=== PATIENT | male | born 1985 | race Two or more races ===

== ENCOUNTER 2021-01-13 23:47 | Emergency (ER) | payer OTHER ==
[~2021-01-13] VITALS: Ht 165.1 cm; Wt 70.3 kg
--- NOTE | 2021-01-13 23:50 | NUR ---
PT [facility] REQUESTING MEDICAL CLEARANCE. PT C/O COUGH AND POSSIBLE COVID EXPOSURE. PT AAOX4. AMBULATORY WITH STEADY GAIT. VITAL SIGNS STABLE. NO ACUTE DISTRESS NOTED AT THIS TIME. [employer] AT BEDSIDE, WILL CONTINUE TO MONITOR
--- NOTE | 2021-01-14 00:11 | NUR ---
TREEID SWABBED, SENT TO LAB.
[2021-01-14 01:15] VITALS: BP 124/79
--- NOTE | 2021-01-14 01:15 | NUR ---
PT MEDICALLY CLEARED FOR INCARCERATION. AMBULATORY WITH STEADY GAIT
== END 2021-01-14 01:16 ==
LOC: ER 23:49
DX: R05 Cough (principal); Z20.822 Contact with and (suspected) exposure to COVID-19; F20.9 Schizophrenia, unspecified; R93.2 Abnormal findings on diagnostic imaging of liver and biliary tract
CPT/HCPCS: 71045; 87426; 99284; C9803

== ENCOUNTER 2023-09-15 10:32 | Emergency (ER) | payer MEDICARE, OTHER ==
[~2023-09-15] VITALS: Ht 172.7 cm; Wt 88.9 kg
[2023-09-15] MEDS ORDERED: OLANZAPINE 5 MG TABLET ONE (10:59)
[2023-09-15] MEDS ORDERED: OLANZAPINE 5 MG TABLET PO ONE (11:00)
[2023-09-15 11:31] LABS: BASOPHILS % (AUTO) 0.4 % (0.0-2.0); EOSINOPHILS # (AUTO) 0.1 K/uL (0.0-0.7); EOSINOPHILS % (AUTO) 1.8 % (0.0-6.0); HEMATOCRIT 37 % (39-51); HEMOGLOBIN 12.5 g/dL (13.5-17.5); LYMPHOCYTES % (AUTO) 17.7 % (20.0-44.0); MEAN CORPUSCULAR HEMOGLOBIN 28 PG (26.0-33.0); MEAN CORPUSCULAR HGB CONC 34 g/dl (31.0-36.0); MEAN CORPUSCULAR VOLUME 82 fL (80-96); MONOCYTES # (AUTO) 0.8 K/uL (0.1-1.30); MONOCYTES % (AUTO) 14.5 % (2.0-12.0); NEUTROPHILS # (AUTO) 3.6 K/uL (1.8-8.9); NEUTROPHILS % (AUTO) 65.6 % (43.0-81.0); PLATELET COUNT (AUTO) 240 K/uL (150-450); RED BLOOD CELL COUNT(AUTO) 4.52 MIL/uL (4.5-6.0); RED CELL DISTRIBUTION WIDTH 15.9 % (11.5-15.0); WHITE BLOOD COUNT (AUTO) 5.5 K/uL (4.3-11.0)
[2023-09-15 11:38] LABS: APPEARANCE,URINE CLEAR (CLEAR); BILIRUBIN,URINE NEGATIVE (NEGATIVE); BLOOD, URINE NEGATIVE Ery/uL (NEGATIVE); COLOR,URINE YELLOW (YELLOW); KETONES,URINE NEGATIVE (NEGATIVE); LEUKOCYTE ESTERASE ,URINE NEGATIVE (NEGATIVE); NITRITE, URINE NEGATIVE (NEGATIVE); PROTEIN,URINE NEGATIVE (NEGATIVE); UGLUCOSE NEGATIVE (NEGATIVE); UROBILINOGEN,URINE 0.2 EU/dL (0.2)
[2023-09-15 11:41] LABS: BARBITURATE, URINE NEGATIVE (NEGATIVE); BENZODIAZEPINE, URINE NEGATIVE (NEGATIVE); COCCAINE, URINE NEGATIVE (NEGATIVE); OPIATE, URINE NEGATIVE (NEGATIVE); PHENCYCLIDINE SCREEN,URINE NEGATIVE (NEGATIVE)
[2023-09-15 11:41] LABS: CALCIUM, SERUM 8.9 mg/dL (8.5-10.1); CREATININE 0.9 mg/dL (0.6-1.3); POTASSIUM 3.5 mmol/L (3.5-5.1)
[2023-09-15 11:44] LABS: AMPHETAMINE, URINE POSITIVE (NEGATIVE); CANNABINOID, URINE POSITIVE (NEGATIVE)
[2023-09-15 11:47] LABS: BILIRUBIN,DIRECT 0.1 mg/dL (0.0-0.2); BILIRUBIN,TOTAL 0.2 mg/dL (0.2-1.0); TOTAL PROTEIN, SERUM 7.9 g/dL (6.4-8.2)
[2023-09-15 11:48] LABS: SALICYLATE 1.6 mg/dL (2.8-20.0)
[2023-09-16 12:35] VITALS: BP 118/75; TEMP 98.2; O2SAT 97
== END 2023-09-16 14:37 ==
LOC: ER 10:35
DX: F91.1 Conduct disorder, childhood-onset type (principal); R44.0 Auditory hallucinations; Z20.822 Contact with and (suspected) exposure to COVID-19
CPT/HCPCS: 36415; 80048-TC; 80076-TC; 85025-TC; C9803; G0480

== ENCOUNTER 2024-06-25 05:13 | Inpatient (IN) | payer MEDICARE, OTHER ==
[2024-06-25] VITALS (8 sets, daily range): BP systolic 92–185; BP diastolic 68–108; TEMP 98.3–103.1; O2SAT 96–99
[~2024-06-25] VITALS: Ht 162.6 cm; Wt 80.3 kg
[2024-06-25] MEDS: IV NS 0.9% 500 ML BAG IV ONE ×2 (05:49→12:45)
[2024-06-25 06:29] LABS: BASOPHILS % (AUTO) 0.1 % (0.0-2.0); HEMATOCRIT 40 % (39-51); HEMOGLOBIN 13.1 g/dL (13.5-17.5); LYMPHOCYTES # (AUTO) 0.4 K/uL (0.8-4.8); MEAN CORPUSCULAR HEMOGLOBIN 28 PG (26.0-33.0); MEAN CORPUSCULAR HGB CONC 33 g/dl (31.0-36.0); MEAN CORPUSCULAR VOLUME 84 fL (80-96); MONOCYTES # (AUTO) 0.3 K/uL (0.1-1.30); MONOCYTES % (AUTO) 7.1 % (2.0-12.0); NEUTROPHILS # (AUTO) 3.9 K/uL (1.8-8.9); NEUTROPHILS % (AUTO) 83.8 % (43.0-81.0); PLATELET COUNT (AUTO) 267 K/uL (150-450); RED BLOOD CELL COUNT(AUTO) 4.72 MIL/uL (4.5-6.0); RED CELL DISTRIBUTION WIDTH 16.1 % (11.5-15.0); WHITE BLOOD COUNT (AUTO) 4.7 K/uL (4.3-11.0)
[2024-06-25 06:37] LABS: CALCIUM, SERUM 10.2 mg/dL (8.5-10.1); CREATININE 1.3 mg/dL (0.6-1.3); POTASSIUM 5.2 mmol/L (3.5-5.1)
[2024-06-25 06:43] LABS: ALBUMIN 3.5 g/dL (3.4-5.0); BILIRUBIN,DIRECT 0.3 mg/dL (0.0-0.2); BILIRUBIN,TOTAL 0.8 mg/dL (0.2-1.0); TOTAL PROTEIN, SERUM 8.8 g/dL (6.4-8.2)
[2024-06-25 07:00] LABS: APPEARANCE,URINE CLOUDY (CLEAR); BILIRUBIN,URINE 1+ (NEGATIVE); BLOOD, URINE 1+ Ery/uL (NEGATIVE); COLOR,URINE YELLOW (YELLOW); KETONES,URINE TRACE mg/dL (NEGATIVE); LEUKOCYTE ESTERASE ,URINE 2+ (NEGATIVE); NITRITE, URINE NEGATIVE (NEGATIVE); PH,URINE 8.5 (5.0-8.0); PROTEIN,URINE 2+ mg/dl (NEGATIVE); UGLUCOSE NEGATIVE (NEGATIVE)
[2024-06-25] MEDS ORDERED: FAMOTIDINE/PF INJ 20 MG/2 ML VIAL IV ONE (07:04)
[2024-06-25] MEDS ORDERED: METOCLOPRAMIDE HCL 10 MG/2 ML VIAL ONE (07:04)
[2024-06-25] MEDS ORDERED: PANTOPRAZOLE 40 MG VIAL ONE (07:04)
[2024-06-25 07:05] LABS: INR 1.1 (0.91-1.10); PARTIAL THROMBOPLASTIN TIME 28.6 SEC (24.3-34.3); PROTHROMBIN TIME 11.6 SECS (9.2-11.1)
[2024-06-25 07:08] LABS: LACTIC ACID 2.3 mmol/L (0.4-2.0)
[2024-06-25] MEDS: PANTOPRAZOLE 80 MG in IV NS 0.9% 100 ML IV ONE (07:09)
[2024-06-25 07:23] LABS: ADD URINE CULTURE YES; BACTERIA,URINE Few /HPF (None Seen); CALCIUM OXALATE CRYSTALS,UR Few /HPF (None Seen); MUCUS,URINE Few /LPF (None Seen); SQUAMOUS EPITHELIAL CELL,UR None Seen /HPF (None Seen); TRICHOMONAS,URINE None Seen /HPF (None Seen); URIC ACID CRYSTALS,URINE Rare /HPF (None Seen); YEAST,URINE None Seen /HPF (None Seen)
[2024-06-25] MEDS: METOCLOPRAMIDE HCL 10 MG/2 ML VIAL IV ONE (07:29)
[2024-06-25] MEDS: IV NS 0.9% 1,000 ML BAG IV ONE (07:29)
[2024-06-25] MEDS: FAMOTIDINE/PF INJ 40 MG in IV D5W 50 ML IV ONE (07:29)
[2024-06-25] MEDS: PANTOPRAZOLE 80 MG in IV NS 0.9% 500 ML IV ONE (07:29)
[2024-06-25 07:37] LABS: ANISOCYTOSIS 1+; BAND % (MANUAL) 2 % (0.0-5.0); LYMPHOCYTES % (MANUAL) 10 % (16-48); METAMYELOCYTES % 1 % (0-0); MONOCYTES % (MANUAL) 8 % (0-11.0); MYELOCYTES % 1 % (0-0); NEUTROPHILS % (MANUAL) 77 (42-76); PLATELET ESTIMATE ADEQUATE; PROMYELOCYTES % 1 % (0-0)
[2024-06-25] MEDS ORDERED: FAMO20TA80 GT (08:53)
[2024-06-25] MEDS ORDERED: DOCU100T2 GT (08:53)
[2024-06-25] MEDS ORDERED: CHLO118L3 MM (08:53)
[2024-06-25] MEDS ORDERED: CLON0.1T GT (08:53)
[2024-06-25] MEDS ORDERED: MODAFINIL GT (08:53)
[2024-06-25] MEDS ORDERED: PROP10TA10 GT (08:53)
[2024-06-25] MEDS ORDERED: NUTR250L61 GT (08:53)
[2024-06-25] MEDS ORDERED: ENOX40DI SQ (08:53)
[2024-06-25] MEDS ORDERED: HYDR-500 GT (08:53)
[2024-06-25] MEDS ORDERED: ACET-868 GT ×2 (08:53)
[2024-06-25] MEDS ORDERED: ALBU2.5V38 IH (08:53)
[2024-06-25] MEDS ORDERED: POLY17PO4 GT (08:53)
[2024-06-25] MEDS ORDERED: AMAN50SY GT (08:53)
[2024-06-25] MEDS ORDERED: LEVE100S GT (08:53)
[2024-06-25] MEDS ORDERED: CEFTRIAXONE 1GM BAG (ER ONLY) 50 ML IV ONE (09:00)
[2024-06-25] MEDS: CEFTRIAXONE 1 G in IV D5W 50 ML IV ONE (09:05)
[2024-06-25] MEDS ORDERED: ACETAMINOPHEN 650 MG/SUPP.RECT RC ONE (09:47)
[2024-06-25] MEDS ORDERED: IOHEXOL-300 100 ML VIAL IV ONE (09:49)
[2024-06-25] MEDS ORDERED: IV NS 0.9% 250 ML IV ONE (09:50)
[2024-06-25] MEDS ORDERED: CT SWABBABLE VALVE TRANS SET 1 EA INFUS.SET MC ONE (09:50)
[2024-06-25] MEDS: ACETAMINOPHEN ES 500 MG TABLET PO ONE (09:50)
[2024-06-25] MEDS: ACETAMINOPHEN 650 MG/SUPP.RECT RC ONE (09:55)
[2024-06-25 10:05] LABS: HEMATOCRIT 39 % (39-51); HEMOGLOBIN 12.4 g/dL (13.5-17.5); LYMPHOCYTES # (AUTO) 0.6 K/uL (0.8-4.8); MEAN CORPUSCULAR HEMOGLOBIN 27 PG (26.0-33.0); MEAN CORPUSCULAR HGB CONC 32 g/dl (31.0-36.0); MEAN CORPUSCULAR VOLUME 85 fL (80-96); MONOCYTES # (AUTO) 0.3 K/uL (0.1-1.30); MONOCYTES % (AUTO) 11.8 % (2.0-12.0); NEUTROPHILS # (AUTO) 1.7 K/uL (1.8-8.9); NEUTROPHILS % (AUTO) 64.2 % (43.0-81.0); PLATELET COUNT (AUTO) 286 K/uL (150-450); RED BLOOD CELL COUNT(AUTO) 4.57 MIL/uL (4.5-6.0); RED CELL DISTRIBUTION WIDTH 16.3 % (11.5-15.0); WHITE BLOOD COUNT (AUTO) 2.6 K/uL (4.3-11.0)
[2024-06-25] MEDS ORDERED: KETOROLAC TROMETHAMINE 15 MG/ML VIAL ONE (11:19)
[2024-06-25] MEDS: KETOROLAC TROMETHAMINE 15 MG/ML VIAL IV ONE (11:31)
[2024-06-25] MEDS: PIPERACILLIN /TAZOBACTAM 3.375 G in IV D5W 50 ML IV ONE (11:31)
[2024-06-25] MEDS: VANCOMYCIN 1 GM in IV D5W 250 ML IV ONE (12:20)
[2024-06-25] MEDS ORDERED: BENZOIN COMPOUND TINCT 60 ML BOTTLE ONE (12:22)
[2024-06-25] MEDS ORDERED: MAGNESIUM HYDROXIDE 30 ML UDC PO PRN (12:30)
[2024-06-25] MEDS ORDERED: ONDANSETRON HCL/PF 4 MG/2 ML VIAL IVP PRN (12:30)
[2024-06-25] MEDS ORDERED: POLYETHYLENE GLYCOL 3350 17 GM POWD.PACK GT PRN (12:30)
[2024-06-25] MEDS ORDERED: MAG HYDROX/AL HYDROX/SIMETH 30 ML UDC PO PRN (12:30)
[2024-06-25] MEDS ORDERED: ACETAMINOPHEN 325 MG TABLET PO PRN (12:30)
[2024-06-25] MEDS ORDERED: Z GUARD REMEDY 4 OZ OINT TP PRN (12:30)
[2024-06-25] MEDS ORDERED: DOCUSATE SODIUM LIQ 100 MG/10 ML UDC GT PRN (13:30)
[2024-06-25] MEDS ORDERED: ALBUTEROL FS 2.5 MG/3 ML VIAL.NEB NEB PRN (13:30)
[2024-06-25] MEDS ORDERED: ALBUTEROL FS 2.5 MG/3 ML VIAL.NEB IH PRN (13:30)
[2024-06-25] MEDS ORDERED: PANTOPRAZOLE 40 MG VIAL IV SCH ×2 (14:32→21:00)
[2024-06-25] MEDS: IV NS 0.9% 1,000 ML IV PRN (15:26)
[2024-06-25] MEDS: VANCOMYCIN 500 MG in IV D5W 100ml IV ONE (15:29)
[2024-06-25] MEDS ORDERED: PANTOPRAZOLE 80 MG in IV NS 0.9% 500 ML IV PRN (15:30)
[2024-06-25] MEDS: LEVETIRACETAM SOL (5 ML) 100 MG/ML UDC GT SCH (17:00)
[2024-06-25] MEDS: AMANTADINE SUSP 50 MG/5 ML UDC GT SCH (17:00)
[2024-06-25] MEDS: PROPRANOLOL HCL 10 MG TABLET GT SCH (17:00)
[2024-06-25] MEDS: PIPERACILLIN /TAZOBACTAM 3.375 G in IV D5W 50 ML IV SCH (17:50)
[2024-06-25] MEDS: PANTOPRAZOLE 80 MG in IV NS 0.9% 500 ML IV SCH (17:50)
[2024-06-25 18:42] LABS: BASOPHILS % (AUTO) 0.1 % (0.0-2.0); EOSINOPHILS % (AUTO) 0.2 % (0.0-6.0); HEMATOCRIT 31 % (39-51); LYMPHOCYTES # (AUTO) 0.5 K/uL (0.8-4.8); LYMPHOCYTES % (AUTO) 21.6 % (20.0-44.0); MEAN CORPUSCULAR HEMOGLOBIN 28 PG (26.0-33.0); MEAN CORPUSCULAR HGB CONC 33 g/dl (31.0-36.0); MEAN CORPUSCULAR VOLUME 85 fL (80-96); MONOCYTES # (AUTO) 0.3 K/uL (0.1-1.30); NEUTROPHILS # (AUTO) 1.5 K/uL (1.8-8.9); NEUTROPHILS % (AUTO) 66.1 % (43.0-81.0); PLATELET COUNT (AUTO) 197 K/uL (150-450); RED BLOOD CELL COUNT(AUTO) 3.62 MIL/uL (4.5-6.0); RED CELL DISTRIBUTION WIDTH 16.5 % (11.5-15.0); WHITE BLOOD COUNT (AUTO) 2.3 K/uL (4.3-11.0)
[2024-06-25] MEDS: IV LR 1000 ML 1,000 ML BAG IV ONE (19:23)
[2024-06-25] MEDS ORDERED: LEVETIRACETAM (500MG) 500 MG/5 ML VIAL IV ONE (20:16)
[2024-06-25] MEDS: LEVETIRACETAM (500MG) 500 MG in IV NS 0.9% 100 ML IV SCH (20:28)
[2024-06-25] MEDS: CHLORHEXIDINE GLUCONATE 4% 118 ML BOTTLE TP SCH (21:00)
[2024-06-25 22:22] LABS: BAND % (MANUAL) 24 % (0.0-5.0); LYMPHOCYTES % (MANUAL) 34 % (16-48); METAMYELOCYTES % 4 % (0-0); MONOCYTES % (MANUAL) 20 % (0-11.0); NEUTROPHILS % (MANUAL) 18 (42-76)
[2024-06-25 22:23] LABS: ANISOCYTOSIS 1+
[2024-06-25 22:25] LABS: PLATELET ESTIMATE ADEQU
[2024-06-25] MEDS: SODIUM BICARBONATE SYR 50 MEQ/50 ML DISP.SYRIN IV ONE (22:30)
[2024-06-25] MEDS: ACETAMINOPHEN 650 MG/SUPP.RECT RC PRN (22:45)
[2024-06-25] MEDS: SODIUM BICARBONATE SYR 50 MEQ/50 ML DISP.SYRIN ONE (23:16)
[2024-06-26] VITALS (94 sets, daily range): BP systolic 77–122; BP diastolic 57–96; TEMP 97.5–105.8; O2SAT 94–100
[2024-06-26] MEDS: DILTIAZEM HCL 25 MG IV IV ONE (00:40)
[2024-06-26] MEDS ORDERED: NOREPINEPHRINE 8 MG in IV D5W 242 ML IV PRN (01:00)
[2024-06-26] MEDS: VANCOMYCIN HCL 1.25 GM in IV D5W 250 ML IV SCH (01:19)
[2024-06-26] MEDS: PHENYLEPHRINE 50 MG in IV NS 0.9% 245 ML IV PRN (02:22)
[2024-06-26] MEDS: PHENYLEPHRINE 10 MG/ML VIAL ONE (03:07)
[2024-06-26 05:11] LABS: BASOPHILS % (AUTO) 0.1 % (0.0-2.0); EOSINOPHILS % (AUTO) 0.1 % (0.0-6.0); HEMATOCRIT 32 % (39-51); HEMOGLOBIN 10.1 g/dL (13.5-17.5); LYMPHOCYTES # (AUTO) 0.8 K/uL (0.8-4.8); MEAN CORPUSCULAR HEMOGLOBIN 28 PG (26.0-33.0); MEAN CORPUSCULAR HGB CONC 31 g/dl (31.0-36.0); MEAN CORPUSCULAR VOLUME 88 fL (80-96); MONOCYTES # (AUTO) 0.5 K/uL (0.1-1.30); NEUTROPHILS # (AUTO) 3.8 K/uL (1.8-8.9); NEUTROPHILS % (AUTO) 74.8 % (43.0-81.0); PLATELET COUNT (AUTO) 188 K/uL (150-450); RED BLOOD CELL COUNT(AUTO) 3.67 MIL/uL (4.5-6.0); RED CELL DISTRIBUTION WIDTH 17.4 % (11.5-15.0); WHITE BLOOD COUNT (AUTO) 5.1 K/uL (4.3-11.0)
[2024-06-26] MEDS ORDERED: LEVETIRACETAM (500MG) 500 MG/5 ML VIAL IV ONE (05:27)
[2024-06-26 05:29] LABS: CALCIUM, SERUM 8.6 mg/dL (8.5-10.1); CREATININE 2.3 mg/dL (0.6-1.3); MAGNESIUM 1.6 mg/dL (1.8-2.4); PHOSPHORUS 3.6 mg/dL (2.5-4.9); POTASSIUM 4.2 mmol/L (3.5-5.1)
[2024-06-26 08:11] LABS: MONOCYTES % (MANUAL) 10 % (0-11.0)
[2024-06-26 08:11] LABS: ABG BASE EXCESS -1.9 mmol/L (-2.0-3.0); ABG OXYGEN SATURATION 95.6 % (94.0-98.0); ABG PCO2 26.2 mmHg (35.0-48.0); ABG PH 7.499 (7.350-7.450); ABG PO2 76.4 mmHg (83.0-108.0); ABG TOTAL HEMOGLOBIN 12.7 G/dL (13.5-17.5); AaDO2 466.5 mmHg; COHb 0.3 % (0.5-1.5); MetHb 0.1 % (0.0-1.5); O2Hb 95.2 % (94.0-97.0); SITE, ABG Right Radial
[2024-06-26 08:18] LABS: BAND % (MANUAL) 3 % (0.0-5.0); LYMPHOCYTES % (MANUAL) 15 % (16-48); METAMYELOCYTES % 1 % (0-0); MYELOCYTES % 2 % (0-0); NEUTROPHILS % (MANUAL) 69 (42-76)
[2024-06-26 08:19] LABS: PLATELET ESTIMATE ADEQUATE; PROMYELOCYTES % 1 % (0-0)
[2024-06-26] MEDS: IV NS 0.9% 1,000 ML IV ONE (08:20)
[2024-06-26] MEDS: MODAFINIL 100 MG TABLET GT SCH (09:00)
[2024-06-26] MEDS: AMIODARONE 150 MG in IV D5W 100 ML IV ONE (09:09)
[2024-06-26] MEDS: OCTREOTIDE 50 MCG in IV NS 0.9% 50 ML IJ ONE (09:09)
[2024-06-26] MEDS: AMIODARONE 450 MG in IV D5W 241 ML IV PRN (10:00)
[2024-06-26] MEDS: OCTREOTIDE 1,250 MCG in IV NS 0.9% 247.5 ML IV PRN (10:59)
[2024-06-26] MEDS ORDERED: ALBUMIN 25% 12.5 GM/50 ML BOTTLE IV ONE (11:00)
[2024-06-26] MEDS: Magnesium 1GM/D5W 100ML PREMIX 100 ML IV SCH (11:53)
[2024-06-26 12:52] LABS: HIV-1 p24 ANTIGEN NON REACTIVE (NONREACTIVE); HIV-1/2 ANTIBODY REACTIVE (NONREACTIVE)
[2024-06-26] MEDS ORDERED: MEROPENEM 1 G in IV NS 0.9% 100 ML IV SCH (13:00)
[2024-06-26] MEDS: MEROPENEM 1 G in IV NS 0.9% 100 ML IV SCH (13:54)
[2024-06-26] MEDS: FLUCONAZOLE IN NS,PREMIX 200 MG in PREMIX 1 EA IV SCH (13:54)
[2024-06-26] MEDS: ALBUMIN 25% 12.5 GM in PREMIX 1 EA IV ONE (15:26)
[2024-06-26] MEDS ORDERED: AMANTADINE SUSP 50 MG/5 ML UDC GT SCH (17:00)
[2024-06-26 19:08] LABS: BASOPHILS % (AUTO) 0.3 % (0.0-2.0); EOSINOPHILS % (AUTO) 0.2 % (0.0-6.0); HEMATOCRIT 30 % (39-51); HEMOGLOBIN 9.4 g/dL (13.5-17.5); LYMPHOCYTES # (AUTO) 0.4 K/uL (0.8-4.8); LYMPHOCYTES % (AUTO) 7.9 % (20.0-44.0); MEAN CORPUSCULAR HEMOGLOBIN 27 PG (26.0-33.0); MEAN CORPUSCULAR HGB CONC 32 g/dl (31.0-36.0); MEAN CORPUSCULAR VOLUME 86 fL (80-96); MONOCYTES # (AUTO) 0.4 K/uL (0.1-1.30); MONOCYTES % (AUTO) 7.7 % (2.0-12.0); NEUTROPHILS # (AUTO) 3.9 K/uL (1.8-8.9); NEUTROPHILS % (AUTO) 83.9 % (43.0-81.0); PLATELET COUNT (AUTO) 156 K/uL (150-450); RED BLOOD CELL COUNT(AUTO) 3.44 MIL/uL (4.5-6.0); RED CELL DISTRIBUTION WIDTH 17.3 % (11.5-15.0); WHITE BLOOD COUNT (AUTO) 4.6 K/uL (4.3-11.0)
[2024-06-26 21:23] LABS: ANISOCYTOSIS 1+; BAND % (MANUAL) 9 % (0.0-5.0); LYMPHOCYTES % (MANUAL) 17 % (16-48); MONOCYTES % (MANUAL) 14 % (0-11.0); NEUTROPHILS % (MANUAL) 60 (42-76); PLATELET ESTIMATE ADEQUATE
[2024-06-26 21:24] LABS: ROULEAUX 1+
[2024-06-26] MEDS: LEVETIRACETAM (500MG) 500 MG in IV NS 0.9% 100 ML IV SCH (21:30)
[2024-06-27] VITALS (90 sets, daily range): BP systolic 90–126; BP diastolic 63–90; TEMP 98.6–99.5; O2SAT 82–100
[2024-06-27] MEDS: VANCOMYCIN HCL 1.25 GM in IV D5W 250 ML IV SCH (02:15)
[2024-06-27] MEDS: IV NS 0.9% 1,000 ML IV PRN (09:37)
[2024-06-27 13:36] LABS: HIV-1 p24 ANTIGEN NON REACTIVE (NONREACTIVE); HIV-1/2 ANTIBODY REACTIVE (NONREACTIVE)
[2024-06-27] MEDS: DIGOXIN INJ 0.5 MG/2 ML AMPUL IV SCH (13:47)
[2024-06-27 15:11] LABS: CALCIUM, SERUM 7.9 mg/dL (8.5-10.1); CREATININE 1.2 mg/dL (0.6-1.3); MAGNESIUM 2.5 mg/dL (1.8-2.4); PHOSPHORUS 3.6 mg/dL (2.5-4.9); POTASSIUM 4.7 mmol/L (3.5-5.1)
[2024-06-27 16:10] LABS: BASOPHILS % (AUTO) 0.1 % (0.0-2.0); EOSINOPHILS % (AUTO) 0.1 % (0.0-6.0); HEMATOCRIT 27 % (39-51); HEMOGLOBIN 8.7 g/dL (13.5-17.5); LYMPHOCYTES # (AUTO) 0.2 K/uL (0.8-4.8); LYMPHOCYTES % (AUTO) 3.5 % (20.0-44.0); MEAN CORPUSCULAR HEMOGLOBIN 27 PG (26.0-33.0); MEAN CORPUSCULAR HGB CONC 32 g/dl (31.0-36.0); MEAN CORPUSCULAR VOLUME 84 fL (80-96); MONOCYTES # (AUTO) 0.3 K/uL (0.1-1.30); MONOCYTES % (AUTO) 5.2 % (2.0-12.0); NEUTROPHILS # (AUTO) 5.4 K/uL (1.8-8.9); NEUTROPHILS % (AUTO) 91.1 % (43.0-81.0); PLATELET COUNT (AUTO) 137 K/uL (150-450); RED BLOOD CELL COUNT(AUTO) 3.21 MIL/uL (4.5-6.0); RED CELL DISTRIBUTION WIDTH 17.7 % (11.5-15.0); WHITE BLOOD COUNT (AUTO) 5.9 K/uL (4.3-11.0)
[2024-06-27 20:40] LABS: BAND % (MANUAL) 6 % (0.0-5.0); LYMPHOCYTES % (MANUAL) 6 % (16-48); METAMYELOCYTES % 8 % (0-0); MONOCYTES % (MANUAL) 3 % (0-11.0); PLATELET ESTIMATE DECREASED
[2024-06-27 20:41] LABS: ANISOCYTOSIS 1+
[2024-06-27 20:43] LABS: NEUTROPHILS % (MANUAL) 77 (42-76)
[2024-06-27] MEDS ORDERED: PANTOPRAZOLE 40 MG VIAL IV SCH (21:00)
[2024-06-28] VITALS (49 sets, daily range): BP systolic 103–151; BP diastolic 74–110; TEMP 98.6–100.7; O2SAT 95–100
[2024-06-28 05:11] LABS: BASOPHILS % (AUTO) 0.1 % (0.0-2.0); EOSINOPHILS % (AUTO) 0.1 % (0.0-6.0); HEMATOCRIT 25 % (39-51); HEMOGLOBIN 8.4 g/dL (13.5-17.5); LYMPHOCYTES # (AUTO) 0.3 K/uL (0.8-4.8); LYMPHOCYTES % (AUTO) 4.4 % (20.0-44.0); MEAN CORPUSCULAR HEMOGLOBIN 28 PG (26.0-33.0); MEAN CORPUSCULAR HGB CONC 33 g/dl (31.0-36.0); MEAN CORPUSCULAR VOLUME 84 fL (80-96); MONOCYTES # (AUTO) 0.3 K/uL (0.1-1.30); MONOCYTES % (AUTO) 5.9 % (2.0-12.0); NEUTROPHILS # (AUTO) 5.3 K/uL (1.8-8.9); NEUTROPHILS % (AUTO) 89.5 % (43.0-81.0); PLATELET COUNT (AUTO) 132 K/uL (150-450); RED BLOOD CELL COUNT(AUTO) 2.97 MIL/uL (4.5-6.0); RED CELL DISTRIBUTION WIDTH 17.9 % (11.5-15.0); WHITE BLOOD COUNT (AUTO) 5.9 K/uL (4.3-11.0)
[2024-06-28 05:34] LABS: CALCIUM, SERUM 8.2 mg/dL (8.5-10.1); CREATININE 0.9 mg/dL (0.6-1.3); MAGNESIUM 2.2 mg/dL (1.8-2.4); PHOSPHORUS 2.9 mg/dL (2.5-4.9); POTASSIUM 3.6 mmol/L (3.5-5.1)
[2024-06-28] MEDS: MEROPENEM 1 G in IV NS 0.9% 100 ML IV SCH (07:48)
[2024-06-28] MEDS ORDERED: TPN/PPN PER PHARMACY IV PRN (08:00)
[2024-06-28] MEDS: PANTOPRAZOLE 40 MG VIAL IV SCH (08:08)
[2024-06-28 08:11] LABS: ALBUMIN 1.8 g/dL (3.4-5.0)
[2024-06-28 08:14] LABS: PREALBUMIN 7.3 MG/DL (18.0-35.7)
[2024-06-28] MEDS ORDERED: PANTOPRAZOLE 40 MG VIAL IV SCH (09:00)
[2024-06-28] MEDS: TPN BAG #1 IV SCH (09:55)
[2024-06-28] MEDS ORDERED: DEXTROSE 50%-WATER 50 ML DISP.SYRIN IV PRN (11:00)
[2024-06-28] MEDS: BLOOD SUGAR DIAGNOSTIC 1 EACH STRIP IN SCH (12:57)
[2024-06-28] MEDS: VANCOMYCIN HCL 1.25 GM in IV D5W 250 ML IV SCH (15:00)
[2024-06-28] MEDS: LORAZEPAM INJ 2 MG/ML VIAL IV ONE (16:58)
[2024-06-28 17:59] LABS: APPEARANCE,SPUN,BODY FLUID CLEAR (CLEAR); TOTAL VOLUME,BODY FLUID 60 mL; WBC, BODY FLUID 17199 /cu. mm. (0-200)
[2024-06-28 18:07] LABS: PROTEIN, BODY FLUID 3.6 G/DL
[2024-06-28 18:12] LABS: POLYNUCLEAR, BODY FLUID 94 % (0-25)
[2024-06-28 18:13] LABS: MONOCYTES,BODY FLUID 4 %
[2024-06-28] MEDS: POTASSIUM CL. PREMIX PERIPHER. 50 ML IV SCH (21:21)
[2024-06-28] MEDS: IV NS 0.9% 1,000 ML IV PRN (21:41)
[2024-06-29] VITALS (53 sets, daily range): BP systolic 109–151; BP diastolic 76–120; TEMP 100–102; O2SAT 89–100
[2024-06-29 04:30] LABS: MAGNESIUM 1.6 mg/dL (1.8-2.4); PHOSPHORUS 1.4 mg/dL (2.5-4.9)
[2024-06-29 07:12] LABS: HEPATITIS B CORE AB, TOTAL Negative (Negative); HEPATITIS B SURFACE AB Non Reactive (.)
[2024-06-29 07:28] LABS: CALCIUM, SERUM 8.5 mg/dL (8.5-10.1); CREATININE 0.8 mg/dL (0.6-1.3)
[2024-06-29] MEDS ORDERED: Sodium Phosphate 15 MMOL in IV NS 0.9% 245 ML IV SCH (08:30)
[2024-06-29] MEDS ORDERED: Magnesium 1GM/D5W 100ML PREMIX 100 ML IV SCH (08:30)
[2024-06-29] MEDS: Magnesium 1GM/D5W 100ML PREMIX 1 G in PREMIX 1 EA IV SCH (08:57)
[2024-06-29] MEDS: POTASSIUM PHOSPHATE MM 15 MMOL in IV NS 0.9% 250 ML IV SCH (09:01)
[2024-06-29] MEDS: TPN BAG #2 IV SCH (10:46)
[2024-06-29] MEDS ORDERED: IV NS 0.9% 1,000 ML IV PRN (11:00)
[2024-06-29] MEDS: INSULIN REGULAR, HUMAN 100 UNIT/ML 3 ML VIAL SQ PRN (12:26)
[2024-06-29] MEDS: POTASSIUM CL. PREMIX PERIPHER. 50 ML IV SCH (16:00)
[2024-06-29 16:03] LABS: PROTEIN, BODY FLUID 3.2 G/DL
[2024-06-29 16:45] LABS: APPEARANCE,SPUN,BODY FLUID CLEAR (CLEAR); TOTAL VOLUME,BODY FLUID 500 mL; WBC, BODY FLUID 17257 /cu. mm. (0-200)
[2024-06-29 16:59] LABS: MACROPHAGES, BODY FLUID 3
[2024-06-29 17:00] LABS: POLYNUCLEAR, BODY FLUID 90 % (0-25)
[2024-06-29] MEDS: VANCOMYCIN HCL 1.25 GM in IV D5W 250 ML IV SCH (22:25)
[2024-06-30] VITALS (33 sets, daily range): BP systolic 94–126; BP diastolic 73–95; TEMP 100.3–102.3; O2SAT 96–100
[2024-06-30 04:29] LABS: BASOPHILS % (AUTO) 0.1 % (0.0-2.0); EOSINOPHILS % (AUTO) 0.3 % (0.0-6.0); HEMATOCRIT 29 % (39-51); HEMOGLOBIN 9.5 g/dL (13.5-17.5); LYMPHOCYTES # (AUTO) 0.6 K/uL (0.8-4.8); LYMPHOCYTES % (AUTO) 6.8 % (20.0-44.0); MEAN CORPUSCULAR HEMOGLOBIN 28 PG (26.0-33.0); MEAN CORPUSCULAR HGB CONC 33 g/dl (31.0-36.0); MEAN CORPUSCULAR VOLUME 84 fL (80-96); MONOCYTES # (AUTO) 0.7 K/uL (0.1-1.30); MONOCYTES % (AUTO) 7.8 % (2.0-12.0); NEUTROPHILS # (AUTO) 7.2 K/uL (1.8-8.9); PLATELET COUNT (AUTO) 96 K/uL (150-450); RED BLOOD CELL COUNT(AUTO) 3.43 MIL/uL (4.5-6.0); RED CELL DISTRIBUTION WIDTH 17.3 % (11.5-15.0); WHITE BLOOD COUNT (AUTO) 8.5 K/uL (4.3-11.0)
[2024-06-30 04:55] LABS: CALCIUM, SERUM 7.8 mg/dL (8.5-10.1); CREATININE 0.6 mg/dL (0.6-1.3); MAGNESIUM 1.5 mg/dL (1.8-2.4); PHOSPHORUS 2.1 mg/dL (2.5-4.9); POTASSIUM 2.8 mmol/L (3.5-5.1)
[2024-06-30 06:10] LABS: *BASOS 1 % (Not Estab.); *EOS 0 % (Not Estab.); *HCT 27.5 % (37.5-51.0); *HGB 8.6 g/dL (13.0-17.7); *IMMATURE GRANULOCYTES 1 % (Not Estab.); *IMMATURE GRANULOCYTES(ABS) 0.1 x10E3/uL (0.0-0.1); *LYMPHOCYTES 5 % (Not Estab.); *LYMPHS, ABSOLUTE 0.3 x10E3/uL (0.7-3.1); *MCH 27.5 pg (26.6-33.0); *MCHC 31.3 g/dL (31.5-35.7); *MCV 88 fL (79-97); *MONOCYTES 8 % (Not Estab.); *MONOS, ABSOLUTE 0.5 x10E3/uL (0.1-0.9); *NEUTROPHILS 85 % (Not Estab.); *NEUTROPHILS, ABSOLUTE 5.1 x10E3/uL (1.4-7.0); *PLT 161 x10E3/uL (150-450); *RBC 3.13 x10E6/uL (4.14-5.80); *RDW 15.4 % (11.6-15.4); *WBC 5.9 x10E3/uL (3.4-10.8)
[2024-06-30 06:26] LABS: BASOPHILS % (MANUAL) 0 % (0.0-2.0); EOSINOPHILS % (MANUAL) 1 % (0-4); LYMPHOCYTES % (MANUAL) 9 % (16-48); MONOCYTES % (MANUAL) 6 % (0-11.0); NEUTROPHILS % (MANUAL) 84 (42-76)
[2024-06-30 06:27] LABS: ANISOCYTOSIS 1+; PLATELET ESTIMATE DECREASED
[2024-06-30] MEDS ORDERED: Magnesium 1 GM/2 ML VIAL IV ONE (07:00)
[2024-06-30] MEDS: POTASSIUM CHLORIDE 10 MEQ/50 ML PREMIXED IVPB FOR PERIPHERAL LINE IV ONE (07:58)
[2024-06-30] MEDS: Magnesium 1GM/D5W 100ML PREMIX 100 ML IV ONE (07:59)
[2024-06-30] MEDS: TPN BAG #3 IV SCH (09:21)
[2024-06-30 10:13] LABS: *% CD 4 POS. LYMPH 26.8 % (30.8-58.5); *% CD 8 POS. LYMPH 39.4 % (12.0-35.5); *ABSOLUTE CD 4 HELPER 80 /uL (359-1519); *ABSOLUTE CD 8 SUPPRESSOR 118 /uL (109-897); *CD4/CD8 RATIO 0.68 (0.92-3.72)
[2024-06-30] MEDS ORDERED: Magnesium 1GM/D5W 100ML PREMIX 100 ML IV SCH (10:30)
[2024-06-30 13:31] LABS: CALCIUM, SERUM 7.2 mg/dL (8.5-10.1); CREATININE 0.8 mg/dL (0.6-1.3); MAGNESIUM 1.4 mg/dL (1.8-2.4); POTASSIUM 2.8 mmol/L (3.5-5.1)
[2024-06-30 15:10] LABS: *HIV-1 log10 RNA 5.072 (.)
[2024-06-30] MEDS: Magnesium 1GM/D5W 100ML PREMIX 100 ML IV SCH (16:05)
[2024-06-30] MEDS: POTASSIUM CL. PREMIX PERIPHER. 50 ML IV SCH (16:06)
[2024-06-30] MEDS: POTASSIUM PHOSPHATE MM 7.5 MMOL in IV NS 0.9% 100 ML IV SCH (17:02)
[2024-07-01] VITALS (24 sets, daily range): BP systolic 97–139; BP diastolic 66–100; TEMP 99.5–102.5; O2SAT 97–100
[2024-07-01 04:51] LABS: BASOPHILS % (AUTO) 0.1 % (0.0-2.0); EOSINOPHILS % (AUTO) 0.4 % (0.0-6.0); HEMATOCRIT 27 % (39-51); LYMPHOCYTES # (AUTO) 0.7 K/uL (0.8-4.8); LYMPHOCYTES % (AUTO) 6.3 % (20.0-44.0); MEAN CORPUSCULAR HEMOGLOBIN 28 PG (26.0-33.0); MEAN CORPUSCULAR HGB CONC 33 g/dl (31.0-36.0); MEAN CORPUSCULAR VOLUME 83 fL (80-96); MONOCYTES # (AUTO) 0.7 K/uL (0.1-1.30); MONOCYTES % (AUTO) 6.9 % (2.0-12.0); NEUTROPHILS # (AUTO) 9.3 K/uL (1.8-8.9); NEUTROPHILS % (AUTO) 86.3 % (43.0-81.0); PLATELET COUNT (AUTO) 200 K/uL (150-450); RED BLOOD CELL COUNT(AUTO) 3.26 MIL/uL (4.5-6.0); RED CELL DISTRIBUTION WIDTH 17.2 % (11.5-15.0); WHITE BLOOD COUNT (AUTO) 10.8 K/uL (4.3-11.0)
[2024-07-01 05:15] LABS: CALCIUM, SERUM 7.3 mg/dL (8.5-10.1); CREATININE 0.6 mg/dL (0.6-1.3); MAGNESIUM 1.6 mg/dL (1.8-2.4); PHOSPHORUS 2.3 mg/dL (2.5-4.9)
[2024-07-01] MEDS ORDERED: POTASSIUM CHLORIDE 10 MEQ/50 ML PREMIXED IVPB FOR PERIPHERAL LINE IV ONE ×2 (07:00→08:00)
[2024-07-01] MEDS: POTASSIUM CL. PREMIX PERIPHER. 50 ML IV SCH (07:02)
[2024-07-01] MEDS: CEFEPIME 2 GM in IV D5W 100 ML IV SCH (08:37)
[2024-07-01] MEDS: METRONIDAZOLE 500MG/ NS 100ML 500 MG in PREMIX 1 EA IV SCH (09:20)
[2024-07-01] MEDS: TPN BAG #4 IV SCH (10:09)
[2024-07-01] MEDS: Magnesium 1GM/D5W 100ML PREMIX 100 ML IV SCH (10:14)
[2024-07-01 12:47] LABS: BILIRUBIN,DIRECT 0.1 mg/dL (0.0-0.2); BILIRUBIN,TOTAL 0.4 mg/dL (0.2-1.0); TOTAL PROTEIN, SERUM 6.2 g/dL (6.4-8.2)
[2024-07-01 13:07] LABS: ALBUMIN 1.4 g/dL (3.4-5.0)
[2024-07-01] MEDS: FLUCONAZOLE IN NS,PREMIX 400 MG in PREMIX 1 EA IV SCH (13:11)
[2024-07-01] MEDS: MIDAZOLAM HCL 2 MG/2ML VIAL IV STA (14:12)
[2024-07-01] MEDS: FENTANYL PF 100MCG/2ML AMPUL IV STA (14:12)
[2024-07-01] MEDS: FAT EMULSION 20% 500 ML in PREMIX 1 EA IV SCH (16:34)
[2024-07-01] MEDS: Sodium Phosphate 15 MMOL in IV NS 0.9% 245 ML IV SCH (17:16)
[2024-07-02] VITALS (24 sets, daily range): BP systolic 96–132; BP diastolic 58–84; TEMP 99.5–102; O2SAT 97–100
[2024-07-02 04:56] LABS: CALCIUM, SERUM 7.4 mg/dL (8.5-10.1); CREATININE 0.5 mg/dL (0.6-1.3); PHOSPHORUS 3.1 mg/dL (2.5-4.9); POTASSIUM 3.2 mmol/L (3.5-5.1)
[2024-07-02 08:10] LABS: RAPID PLASMA REAGIN QUAL. Non Reactive (Non Reactive)
[2024-07-02] MEDS: POTASSIUM CL. PREMIX PERIPHER. 50 ML IV SCH (08:46)
[2024-07-02] MEDS: ALTEPLASE CATHFLO 2 MG/VIAL XX ONE (08:47)
[2024-07-02] MEDS: TPN BAG #5 IV SCH (10:45)
[2024-07-02 11:41] LABS: BASOPHILS % (AUTO) 0.1 % (0.0-2.0); EOSINOPHILS # (AUTO) 0.1 K/uL (0.0-0.7); EOSINOPHILS % (AUTO) 0.9 % (0.0-6.0); HEMATOCRIT 25 % (39-51); HEMOGLOBIN 8.1 g/dL (13.5-17.5); LYMPHOCYTES # (AUTO) 0.5 K/uL (0.8-4.8); LYMPHOCYTES % (AUTO) 3.1 % (20.0-44.0); MEAN CORPUSCULAR HEMOGLOBIN 27 PG (26.0-33.0); MEAN CORPUSCULAR HGB CONC 33 g/dl (31.0-36.0); MEAN CORPUSCULAR VOLUME 83 fL (80-96); MONOCYTES # (AUTO) 0.8 K/uL (0.1-1.30); MONOCYTES % (AUTO) 5.5 % (2.0-12.0); NEUTROPHILS # (AUTO) 13.4 K/uL (1.8-8.9); NEUTROPHILS % (AUTO) 90.4 % (43.0-81.0); PLATELET COUNT (AUTO) 237 K/uL (150-450); RED BLOOD CELL COUNT(AUTO) 3.02 MIL/uL (4.5-6.0); RED CELL DISTRIBUTION WIDTH 17.1 % (11.5-15.0); WHITE BLOOD COUNT (AUTO) 14.8 K/uL (4.3-11.0)
[2024-07-02 12:24] LABS: ABG BASE EXCESS 3.7 mmol/L (-2.0-3.0); ABG OXYGEN SATURATION 96.4 % (94.0-98.0); ABG PCO2 33.4 mmHg (35.0-48.0); ABG PH 7.518 (7.350-7.450); ABG PO2 84.7 mmHg (83.0-108.0); ABG TOTAL HEMOGLOBIN 9.2 G/dL (13.5-17.5); COHb 0.3 % (0.5-1.5); MetHb 0.4 % (0.0-1.5); O2Hb 95.7 % (94.0-97.0); PEEP,BG 5 cm H2O; SITE, ABG RIGHT RADIAL
[2024-07-03] VITALS (24 sets, daily range): BP systolic 105–144; BP diastolic 68–89; TEMP 100.1–101.8; O2SAT 94–100
[2024-07-03 05:06] LABS: CALCIUM, SERUM 8.2 mg/dL (8.5-10.1); CREATININE 0.5 mg/dL (0.6-1.3); MAGNESIUM 1.4 mg/dL (1.8-2.4); PHOSPHORUS 2.6 mg/dL (2.5-4.9); POTASSIUM 2.8 mmol/L (3.5-5.1)
[2024-07-03] MEDS: Magnesium 1GM/D5W 100ML PREMIX 100 ML IV SCH (06:45)
[2024-07-03] MEDS: POTASSIUM CL. PREMIX PERIPHER. 50 ML IV SCH (06:45)
[2024-07-03] MEDS ORDERED: POTASSIUM CL. PREMIX PERIPHER. 50 ML IV SCH ×2 (08:00→12:30)
[2024-07-03] MEDS ORDERED: TPN BAG #6 IV SCH (10:00)
[2024-07-03] MEDS: TPN BAG #6 IV SCH (10:16)
[2024-07-03] MEDS ORDERED: Magnesium 1GM/D5W 100ML PREMIX 100 ML IV SCH (12:30)
[2024-07-03] MEDS: POTASSIUM PHOSPHATE MM 7.5 MMOL in IV NS 0.9% 100 ML IV SCH (15:00)
[2024-07-03] MEDS: TOBRAMYCIN/DEXAMETH OPHTH DORPS 2.5 ML BOTTLE LEFTEYE SCH (17:53)
[2024-07-03] MEDS: VANCOMYCIN 750 MG in IV D5W 250 ML IV SCH (18:47)
[2024-07-04] VITALS (24 sets, daily range): BP systolic 100–140; BP diastolic 66–93; TEMP 99.4–101; O2SAT 96–100
[2024-07-04 05:12] LABS: BASOPHILS # (AUTO) 0.1 K/uL (0.0-0.2); BASOPHILS % (AUTO) 0.7 % (0.0-2.0); EOSINOPHILS # (AUTO) 0.1 K/uL (0.0-0.7); HEMATOCRIT 21 % (39-51); HEMOGLOBIN 7.2 g/dL (13.5-17.5); LYMPHOCYTES # (AUTO) 0.5 K/uL (0.8-4.8); LYMPHOCYTES % (AUTO) 3.7 % (20.0-44.0); MEAN CORPUSCULAR HEMOGLOBIN 28 PG (26.0-33.0); MEAN CORPUSCULAR HGB CONC 34 g/dl (31.0-36.0); MEAN CORPUSCULAR VOLUME 82 fL (80-96); MONOCYTES # (AUTO) 0.8 K/uL (0.1-1.30); MONOCYTES % (AUTO) 5.6 % (2.0-12.0); NEUTROPHILS # (AUTO) 12.2 K/uL (1.8-8.9); PLATELET COUNT (AUTO) 318 K/uL (150-450); RED BLOOD CELL COUNT(AUTO) 2.56 MIL/uL (4.5-6.0); RED CELL DISTRIBUTION WIDTH 16.9 % (11.5-15.0); WHITE BLOOD COUNT (AUTO) 13.8 K/uL (4.3-11.0)
[2024-07-04 05:42] LABS: CALCIUM, SERUM 7.5 mg/dL (8.5-10.1); CREATININE 0.5 mg/dL (0.6-1.3); MAGNESIUM 1.8 mg/dL (1.8-2.4); PHOSPHORUS 2.9 mg/dL (2.5-4.9)
[2024-07-04] MEDS ORDERED: POTASSIUM CHLORIDE 10 MEQ/50 ML PREMIXED IVPB FOR PERIPHERAL LINE IV ONE ×4 (07:00→10:00)
[2024-07-04] MEDS: POTASSIUM CL. PREMIX PERIPHER. 50 ML IV SCH ×2 (08:12→14:27)
[2024-07-04] MEDS: TPN BAG #7 IV SCH (10:30)
[2024-07-04] MEDS ORDERED: MAG HYDROX/AL HYDROX/SIMETH 30 ML UDC GT PRN (16:46)
[2024-07-04] MEDS ORDERED: MAGNESIUM HYDROXIDE 30 ML UDC GT PRN (16:46)
[2024-07-05] VITALS (26 sets, daily range): BP systolic 109–134; BP diastolic 64–82; TEMP 98.6–100.5; O2SAT 96–100
[2024-07-05 04:04] LABS: BASOPHILS % (AUTO) 0.1 % (0.0-2.0); EOSINOPHILS # (AUTO) 0.1 K/uL (0.0-0.7); EOSINOPHILS % (AUTO) 0.7 % (0.0-6.0); LYMPHOCYTES # (AUTO) 0.5 K/uL (0.8-4.8); LYMPHOCYTES % (AUTO) 3.7 % (20.0-44.0); MEAN CORPUSCULAR HEMOGLOBIN 28 PG (26.0-33.0); MEAN CORPUSCULAR HGB CONC 34 g/dl (31.0-36.0); MEAN CORPUSCULAR VOLUME 83 fL (80-96); MONOCYTES # (AUTO) 0.9 K/uL (0.1-1.30); NEUTROPHILS # (AUTO) 13.3 K/uL (1.8-8.9); NEUTROPHILS % (AUTO) 89.5 % (43.0-81.0); PLATELET COUNT (AUTO) 336 K/uL (150-450); RED BLOOD CELL COUNT(AUTO) 2.27 MIL/uL (4.5-6.0); RED CELL DISTRIBUTION WIDTH 16.5 % (11.5-15.0); WHITE BLOOD COUNT (AUTO) 14.9 K/uL (4.3-11.0)
[2024-07-05 04:16] LABS: HEMATOCRIT 19 % (39-51); HEMOGLOBIN 6.3 g/dL (13.5-17.5)
[2024-07-05 04:19] LABS: CREATININE 0.6 mg/dL (0.6-1.3)
[2024-07-05 04:20] LABS: CALCIUM, SERUM 7.8 mg/dL (8.5-10.1)
[2024-07-05 04:38] LABS: MAGNESIUM 1.6 mg/dL (1.8-2.4)
[2024-07-05] MEDS: POTASSIUM CL. PREMIX PERIPHER. 50 ML IV SCH ×2 (05:10→09:07)
[2024-07-05 05:51] LABS: ANISOCYTOSIS 1+; BASOPHILS % (MANUAL) 0 % (0.0-2.0); EOSINOPHILS % (MANUAL) 0 % (0-4); HYPOCHROMASIA FEW; LYMPHOCYTES % (MANUAL) 5 % (16-48); MONOCYTES % (MANUAL) 8 % (0-11.0); NEUTROPHILS % (MANUAL) 87 (42-76); PLATELET ESTIMATE ADEQUATE; STOMATOCYTES 1+
[2024-07-05] MEDS: Magnesium 1GM/D5W 100ML PREMIX 100 ML IV SCH ×2 (07:25→09:07)
[2024-07-05 08:48] LABS: ABG BASE EXCESS 1.2 mmol/L (-2.0-3.0); ABG OXYGEN SATURATION 98.1 % (94.0-98.0); ABG PCO2 30.1 mmHg (35.0-48.0); ABG PH 7.518 (7.350-7.450); ABG PO2 118.3 mmHg (83.0-108.0); ABG TOTAL HEMOGLOBIN 7.9 G/dL (13.5-17.5); COHb 0.3 % (0.5-1.5); MetHb 0.2 % (0.0-1.5); O2Hb 97.6 % (94.0-97.0); PEEP,BG 5 cm H2O
[2024-07-05] MEDS: TPN BAG #8 IV SCH (10:29)
[2024-07-05 18:12] LABS: HEMOGLOBIN 7.1 g/dL (13.5-17.5)
[2024-07-06] VITALS (34 sets, daily range): BP systolic 87–136; BP diastolic 55–88; TEMP 98.5–100.1; O2SAT 94–100
[2024-07-06 03:24] LABS: BASOPHILS % (AUTO) 0.1 % (0.0-2.0); EOSINOPHILS # (AUTO) 0.2 K/uL (0.0-0.7); EOSINOPHILS % (AUTO) 0.9 % (0.0-6.0); HEMATOCRIT 21 % (39-51); HEMOGLOBIN 7.1 g/dL (13.5-17.5); LYMPHOCYTES # (AUTO) 0.5 K/uL (0.8-4.8); LYMPHOCYTES % (AUTO) 3.1 % (20.0-44.0); MEAN CORPUSCULAR HEMOGLOBIN 28 PG (26.0-33.0); MEAN CORPUSCULAR HGB CONC 33 g/dl (31.0-36.0); MEAN CORPUSCULAR VOLUME 83 fL (80-96); MONOCYTES # (AUTO) 0.8 K/uL (0.1-1.30); NEUTROPHILS # (AUTO) 15.1 K/uL (1.8-8.9); NEUTROPHILS % (AUTO) 90.9 % (43.0-81.0); PLATELET COUNT (AUTO) 368 K/uL (150-450); RED BLOOD CELL COUNT(AUTO) 2.55 MIL/uL (4.5-6.0); RED CELL DISTRIBUTION WIDTH 16.3 % (11.5-15.0); WHITE BLOOD COUNT (AUTO) 16.6 K/uL (4.3-11.0)
[2024-07-06 03:30] LABS: CREATININE 0.5 mg/dL (0.6-1.3); MAGNESIUM 1.7 mg/dL (1.8-2.4); PHOSPHORUS 3.1 mg/dL (2.5-4.9)
[2024-07-06 08:24] LABS: BILIRUBIN,DIRECT 0.1 mg/dL (0.0-0.2); BILIRUBIN,TOTAL 0.4 mg/dL (0.2-1.0)
[2024-07-06] MEDS: ALTEPLASE CATHFLO 2 MG/VIAL XX ONE (08:25)
[2024-07-06 08:27] LABS: ALBUMIN 1.3 g/dL (3.4-5.0)
[2024-07-06] MEDS: Magnesium 1GM/D5W 100ML PREMIX 100 ML IV SCH (08:35)
[2024-07-06] MEDS: POTASSIUM CL. PREMIX PERIPHER. 50 ML IV SCH (08:36)
[2024-07-06] MEDS: PROPOFOL 100 ML IV PRN (10:05)
[2024-07-06 10:12] LABS: ABG BASE EXCESS -0.8 mmol/L (-2.0-3.0); ABG OXYGEN SATURATION 97.3 % (94.0-98.0); ABG PCO2 30.3 mmHg (35.0-48.0); ABG PH 7.485 (7.350-7.450); ABG TOTAL HEMOGLOBIN 7.9 G/dL (13.5-17.5); COHb 0.3 % (0.5-1.5); PEEP,BG 5 cm H2O; SITE, ABG RIGHT RADIAL; VT, ABG 25 mL
[2024-07-06] MEDS: TPN BAG #9 IV SCH (12:54)
[2024-07-06] MEDS ORDERED: PROPOFOL 200 MG/20 ML VIAL IV ONE (15:30)
[2024-07-06] MEDS ORDERED: KETAMINE HCL (500MG/10ML) 50 MG/ML VIAL IJ ONE (15:30)
[2024-07-06] MEDS ORDERED: MIDAZOLAM HCL 5 MG/5ML VIAL IV ONE (15:30)
[2024-07-07] VITALS (36 sets, daily range): BP systolic 87–118; BP diastolic 58–79; TEMP 97.9–99.9; O2SAT 94–100
[2024-07-07 04:48] LABS: BASOPHILS % (AUTO) 0.2 % (0.0-2.0); EOSINOPHILS # (AUTO) 0.1 K/uL (0.0-0.7); EOSINOPHILS % (AUTO) 0.9 % (0.0-6.0); LYMPHOCYTES # (AUTO) 0.5 K/uL (0.8-4.8); LYMPHOCYTES % (AUTO) 4.4 % (20.0-44.0); MEAN CORPUSCULAR HEMOGLOBIN 28 PG (26.0-33.0); MEAN CORPUSCULAR HGB CONC 34 g/dl (31.0-36.0); MEAN CORPUSCULAR VOLUME 84 fL (80-96); MONOCYTES # (AUTO) 0.8 K/uL (0.1-1.30); MONOCYTES % (AUTO) 6.8 % (2.0-12.0); NEUTROPHILS # (AUTO) 9.7 K/uL (1.8-8.9); NEUTROPHILS % (AUTO) 87.7 % (43.0-81.0); PLATELET COUNT (AUTO) 392 K/uL (150-450); RED BLOOD CELL COUNT(AUTO) 2.16 MIL/uL (4.5-6.0); RED CELL DISTRIBUTION WIDTH 16.5 % (11.5-15.0); WHITE BLOOD COUNT (AUTO) 11.1 K/uL (4.3-11.0)
[2024-07-07 04:58] LABS: HEMATOCRIT 18 % (39-51); HEMOGLOBIN 6.1 g/dL (13.5-17.5)
[2024-07-07 06:13] LABS: BILIRUBIN,TOTAL 0.4 mg/dL (0.2-1.0); CALCIUM, SERUM 7.4 mg/dL (8.5-10.1); CREATININE 0.5 mg/dL (0.6-1.3); MAGNESIUM 1.8 mg/dL (1.8-2.4); PHOSPHORUS 3.4 mg/dL (2.5-4.9); POTASSIUM 3.3 mmol/L (3.5-5.1)
[2024-07-07] MEDS: ALBUMIN 25% 25 GM in PREMIX 1 EA IV SCH (07:00)
[2024-07-07] MEDS: POTASSIUM CL. PREMIX PERIPHER. 50 ML IV SCH (09:08)
[2024-07-07] MEDS: TPN BAG #10 IV SCH (09:11)
[2024-07-07 11:51] LABS: BAND % (MANUAL) 2 % (0.0-5.0); BASOPHILS % (MANUAL) 0 % (0.0-2.0); EOSINOPHILS % (MANUAL) 0 % (0-4); LYMPHOCYTES % (MANUAL) 6 % (16-48); MONOCYTES % (MANUAL) 7 % (0-11.0); NEUTROPHILS % (MANUAL) 85 (42-76)
[2024-07-07 11:52] LABS: ANISOCYTOSIS 1+; HYPOCHROMASIA 1+; PLATELET ESTIMATE ADEQUATE
[2024-07-07] MEDS ORDERED: IV NS 0.9% 250 ML IV ONE (12:42)
[2024-07-07] MEDS ORDERED: IOHEXOL-300 100 ML VIAL IV ONE (12:42)
[2024-07-07] MEDS ORDERED: CT SWABBABLE VALVE TRANS SET 1 EA INFUS.SET MC ONE (12:42)
[2024-07-07] MEDS: TPN BAG #11 IV SCH (21:26)
[2024-07-08] VITALS (71 sets, daily range): BP systolic 88–112; BP diastolic 59–77; TEMP 98.1–100.5; O2SAT 97–100
[2024-07-08 11:11] LABS: BASOPHILS % (AUTO) 0.5 % (0.0-2.0); EOSINOPHILS # (AUTO) 0.1 K/uL (0.0-0.7); HEMATOCRIT 22 % (39-51); HEMOGLOBIN 8.6 g/dL (13.5-17.5); LYMPHOCYTES # (AUTO) 0.4 K/uL (0.8-4.8); MEAN CORPUSCULAR HEMOGLOBIN 36 PG (26.0-33.0); MEAN CORPUSCULAR HGB CONC 39 g/dl (31.0-36.0); MEAN CORPUSCULAR VOLUME 92 fL (80-96); MONOCYTES # (AUTO) 0.7 K/uL (0.1-1.30); MONOCYTES % (AUTO) 8.1 % (2.0-12.0); NEUTROPHILS # (AUTO) 7.2 K/uL (1.8-8.9); NEUTROPHILS % (AUTO) 85.4 % (43.0-81.0); PLATELET COUNT (AUTO) 399 K/uL (150-450); RED BLOOD CELL COUNT(AUTO) 2.38 MIL/uL (4.5-6.0); RED CELL DISTRIBUTION WIDTH 17.5 % (11.5-15.0); WHITE BLOOD COUNT (AUTO) 8.4 K/uL (4.3-11.0)
[2024-07-08 13:48] LABS: CALCIUM, SERUM 7.7 mg/dL (8.5-10.1); CREATININE 0.5 mg/dL (0.6-1.3); MAGNESIUM 1.7 mg/dL (1.8-2.4); PHOSPHORUS 3.5 mg/dL (2.5-4.9); POTASSIUM 3.9 mmol/L (3.5-5.1)
[2024-07-08] MEDS: Magnesium 1GM/D5W 100ML PREMIX 100 ML IV SCH (14:45)
[2024-07-08 16:11] LABS: BILIRUBIN,DIRECT 0.1 mg/dL (0.0-0.2); BILIRUBIN,TOTAL 0.4 mg/dL (0.2-1.0)
[2024-07-08 16:12] LABS: ALBUMIN 0.9 g/dL (3.4-5.0); TOTAL PROTEIN, SERUM 5.5 g/dL (6.4-8.2)
[2024-07-08] MEDS: JEVITY 1.2 CAL 1,000 ML BOTTLE GT PRN (17:30)
[2024-07-08] MEDS: TPN BAG #12 IV SCH (18:03)
[2024-07-09] VITALS (28 sets, daily range): BP systolic 97–121; BP diastolic 67–80; TEMP 98.8–100.2; O2SAT 98–100
[2024-07-09 04:51] LABS: BASOPHILS % (AUTO) 0.4 % (0.0-2.0); EOSINOPHILS # (AUTO) 0.1 K/uL (0.0-0.7); EOSINOPHILS % (AUTO) 1.2 % (0.0-6.0); HEMATOCRIT 26 % (39-51); HEMOGLOBIN 8.7 g/dL (13.5-17.5); LYMPHOCYTES # (AUTO) 0.4 K/uL (0.8-4.8); LYMPHOCYTES % (AUTO) 4.6 % (20.0-44.0); MEAN CORPUSCULAR HEMOGLOBIN 28 PG (26.0-33.0); MEAN CORPUSCULAR HGB CONC 33 g/dl (31.0-36.0); MEAN CORPUSCULAR VOLUME 86 fL (80-96); MONOCYTES # (AUTO) 0.9 K/uL (0.1-1.30); MONOCYTES % (AUTO) 11.1 % (2.0-12.0); NEUTROPHILS % (AUTO) 82.7 % (43.0-81.0); PLATELET COUNT (AUTO) 437 K/uL (150-450); RED BLOOD CELL COUNT(AUTO) 3.08 MIL/uL (4.5-6.0); WHITE BLOOD COUNT (AUTO) 8.4 K/uL (4.3-11.0)
[2024-07-09 05:03] LABS: CALCIUM, SERUM 7.5 mg/dL (8.5-10.1); CREATININE 0.5 mg/dL (0.6-1.3); POTASSIUM 3.9 mmol/L (3.5-5.1)
[2024-07-09] MEDS ORDERED: BISACODYL SUPP (10 MG) 10 MG/SUPP.RECT SUPP.RECT RC PRN (14:00)
[2024-07-09] MEDS: POLYETHYLENE GLYCOL 3350 17 GM POWD.PACK PO SCH (14:06)
[2024-07-09 14:09] LABS: MAGNESIUM 2.1 mg/dL (1.8-2.4); PHOSPHORUS 4.3 mg/dL (2.5-4.9)
[2024-07-10] VITALS (29 sets, daily range): BP systolic 86–128; BP diastolic 61–83; TEMP 97.1–99.8; O2SAT 96–100
[2024-07-10 04:50] LABS: BASOPHILS % (AUTO) 0.2 % (0.0-2.0); EOSINOPHILS # (AUTO) 0.1 K/uL (0.0-0.7); EOSINOPHILS % (AUTO) 0.9 % (0.0-6.0); HEMATOCRIT 23 % (39-51); HEMOGLOBIN 7.8 g/dL (13.5-17.5); LYMPHOCYTES # (AUTO) 0.4 K/uL (0.8-4.8); LYMPHOCYTES % (AUTO) 4.1 % (20.0-44.0); MEAN CORPUSCULAR HEMOGLOBIN 29 PG (26.0-33.0); MEAN CORPUSCULAR HGB CONC 34 g/dl (31.0-36.0); MEAN CORPUSCULAR VOLUME 85 fL (80-96); NEUTROPHILS # (AUTO) 8.7 K/uL (1.8-8.9); NEUTROPHILS % (AUTO) 84.8 % (43.0-81.0); PLATELET COUNT (AUTO) 393 K/uL (150-450); RED BLOOD CELL COUNT(AUTO) 2.73 MIL/uL (4.5-6.0); RED CELL DISTRIBUTION WIDTH 16.6 % (11.5-15.0); WHITE BLOOD COUNT (AUTO) 10.2 K/uL (4.3-11.0)
[2024-07-10 04:57] LABS: CALCIUM, SERUM 7.8 mg/dL (8.5-10.1); CREATININE 0.5 mg/dL (0.6-1.3); POTASSIUM 3.7 mmol/L (3.5-5.1)
[2024-07-10 05:34] LABS: MAGNESIUM 1.9 mg/dL (1.8-2.4); PHOSPHORUS 3.5 mg/dL (2.5-4.9)
[2024-07-10 06:15] LABS: EOSINOPHILS % (MANUAL) 2 % (0-4); LYMPHOCYTES % (MANUAL) 5 % (16-48); MONOCYTES % (MANUAL) 8 % (0-11.0); MYELOCYTES % 1 % (0-0); NEUTROPHILS % (MANUAL) 84 (42-76); PLATELET ESTIMATE ADEQUATE; SMUDGE CELLS FEW
[2024-07-10 10:34] LABS: THYROID STIMULATING HORMONE 5.9 uIU/mL (0.358-3.74)
[2024-07-10] MEDS: SOD FERRIC GLUC 125 MG in IV NS 0.9% 100 ML IV SCH (14:00)
[2024-07-11] VITALS (24 sets, daily range): BP systolic 94–126; BP diastolic 63–85; TEMP 98.3–99.1; O2SAT 95–100
[2024-07-11 05:41] LABS: BASOPHILS % (AUTO) 0.2 % (0.0-2.0); EOSINOPHILS # (AUTO) 0.1 K/uL (0.0-0.7); EOSINOPHILS % (AUTO) 0.8 % (0.0-6.0); HEMATOCRIT 22 % (39-51); HEMOGLOBIN 7.5 g/dL (13.5-17.5); LYMPHOCYTES # (AUTO) 0.4 K/uL (0.8-4.8); LYMPHOCYTES % (AUTO) 4.2 % (20.0-44.0); MEAN CORPUSCULAR HEMOGLOBIN 29 PG (26.0-33.0); MEAN CORPUSCULAR HGB CONC 34 g/dl (31.0-36.0); MEAN CORPUSCULAR VOLUME 85 fL (80-96); MONOCYTES # (AUTO) 0.8 K/uL (0.1-1.30); MONOCYTES % (AUTO) 8.9 % (2.0-12.0); NEUTROPHILS # (AUTO) 8.1 K/uL (1.8-8.9); NEUTROPHILS % (AUTO) 85.9 % (43.0-81.0); PLATELET COUNT (AUTO) 364 K/uL (150-450); RED BLOOD CELL COUNT(AUTO) 2.62 MIL/uL (4.5-6.0); RED CELL DISTRIBUTION WIDTH 16.7 % (11.5-15.0); WHITE BLOOD COUNT (AUTO) 9.4 K/uL (4.3-11.0)
[2024-07-11 05:55] LABS: MAGNESIUM 1.8 mg/dL (1.8-2.4); PHOSPHORUS 4.3 mg/dL (2.5-4.9)
[2024-07-11 05:59] LABS: CALCIUM, SERUM 8.2 mg/dL (8.5-10.1); CREATININE 0.5 mg/dL (0.6-1.3); POTASSIUM 3.8 mmol/L (3.5-5.1)
[2024-07-11 06:29] LABS: BAND % (MANUAL) 2 % (0.0-5.0); LYMPHOCYTES % (MANUAL) 3 % (16-48); MONOCYTES % (MANUAL) 6 % (0-11.0); NEUTROPHILS % (MANUAL) 89 (42-76); PLATELET ESTIMATE ADEQUATE
[2024-07-11 06:30] LABS: ANISOCYTOSIS 1+
[2024-07-11] MEDS: THERAHONEY GEL 1.5 OZ TUBE TP SCH (08:42)
[2024-07-11] MEDS: SULFAMETH/TRIMETH 800/160 MG 1 UDTAB TABLET PO SCH (08:44)
[2024-07-11] MEDS: POTASSIUM CL. PREMIX PERIPHER. 50 ML IV SCH (10:51)
[2024-07-11] MEDS: BUMETANIDE INJ 3 MG in IV NS 0.9% 48 ML IV ONE (10:51)
[2024-07-11] MEDS: SPIRONOLACTONE 25 MG TABLET NG ONE (10:59)
[2024-07-12] VITALS (44 sets, daily range): BP systolic 89–124; BP diastolic 56–79; TEMP 98.9–99; O2SAT 94–100
[2024-07-12 04:30] LABS: BASOPHILS % (AUTO) 0.2 % (0.0-2.0); EOSINOPHILS # (AUTO) 0.1 K/uL (0.0-0.7); EOSINOPHILS % (AUTO) 1.5 % (0.0-6.0); HEMATOCRIT 22 % (39-51); HEMOGLOBIN 7.4 g/dL (13.5-17.5); LYMPHOCYTES # (AUTO) 0.5 K/uL (0.8-4.8); LYMPHOCYTES % (AUTO) 6.7 % (20.0-44.0); MEAN CORPUSCULAR HEMOGLOBIN 29 PG (26.0-33.0); MEAN CORPUSCULAR HGB CONC 34 g/dl (31.0-36.0); MEAN CORPUSCULAR VOLUME 85 fL (80-96); MONOCYTES # (AUTO) 0.8 K/uL (0.1-1.30); MONOCYTES % (AUTO) 10.4 % (2.0-12.0); NEUTROPHILS # (AUTO) 6.1 K/uL (1.8-8.9); NEUTROPHILS % (AUTO) 81.2 % (43.0-81.0); PLATELET COUNT (AUTO) 343 K/uL (150-450); RED BLOOD CELL COUNT(AUTO) 2.55 MIL/uL (4.5-6.0); RED CELL DISTRIBUTION WIDTH 16.6 % (11.5-15.0); WHITE BLOOD COUNT (AUTO) 7.5 K/uL (4.3-11.0)
[2024-07-12 04:51] LABS: BILIRUBIN,TOTAL 0.3 mg/dL (0.2-1.0); CALCIUM, SERUM 8.1 mg/dL (8.5-10.1); CREATININE 0.6 mg/dL (0.6-1.3); POTASSIUM 4.1 mmol/L (3.5-5.1)
[2024-07-12 04:54] LABS: ALBUMIN 1.2 g/dL (3.4-5.0)
[2024-07-12] MEDS ORDERED: ALTEPLASE 100 MG/VIAL VIAL IV ONE (07:00)
[2024-07-12] MEDS: WATER FOR INJECTION STERILE IV ONE (08:03)
[2024-07-12] MEDS: NS 0.9% IV ONE (08:03)
[2024-07-12] MEDS: ALTEPLASE IV ONE (08:03)
[2024-07-12] MEDS: BUMETANIDE INJ 2 MG in IV NS 0.9% 32 ML IV ONE (17:40)
[2024-07-12] MEDS: LEVETIRACETAM SOL (5 ML) 100 MG/ML UDC GT SCH (20:23)
[2024-07-13] VITALS (25 sets, daily range): BP systolic 94–131; BP diastolic 50–78; TEMP 98.6–99; O2SAT 98–100
[2024-07-13 04:35] LABS: BASOPHILS % (AUTO) 0.4 % (0.0-2.0); EOSINOPHILS # (AUTO) 0.1 K/uL (0.0-0.7); EOSINOPHILS % (AUTO) 1.7 % (0.0-6.0); HEMATOCRIT 24 % (39-51); HEMOGLOBIN 8.2 g/dL (13.5-17.5); LYMPHOCYTES # (AUTO) 0.6 K/uL (0.8-4.8); MEAN CORPUSCULAR HEMOGLOBIN 29 PG (26.0-33.0); MEAN CORPUSCULAR HGB CONC 34 g/dl (31.0-36.0); MEAN CORPUSCULAR VOLUME 85 fL (80-96); MONOCYTES # (AUTO) 0.9 K/uL (0.1-1.30); MONOCYTES % (AUTO) 11.2 % (2.0-12.0); NEUTROPHILS % (AUTO) 78.7 % (43.0-81.0); PLATELET COUNT (AUTO) 382 K/uL (150-450); RED BLOOD CELL COUNT(AUTO) 2.82 MIL/uL (4.5-6.0); RED CELL DISTRIBUTION WIDTH 16.5 % (11.5-15.0); WHITE BLOOD COUNT (AUTO) 7.6 K/uL (4.3-11.0)
[2024-07-13 04:47] LABS: CALCIUM, SERUM 8.3 mg/dL (8.5-10.1); CREATININE 0.7 mg/dL (0.6-1.3); POTASSIUM 4.1 mmol/L (3.5-5.1)
[2024-07-13 05:04] LABS: MAGNESIUM 1.7 mg/dL (1.8-2.4); PHOSPHORUS 4.1 mg/dL (2.5-4.9)
[2024-07-13] MEDS: SULFAMETH/TRIMETH 800/160 MG 1 UDTAB TABLET GT SCH (08:11)
[2024-07-13] MEDS: BUMETANIDE INJ 0.25 MG/ML VIAL IV SCH (08:12)
[2024-07-13] MEDS: Magnesium 1GM/D5W 100ML PREMIX 1 G in PREMIX 1 EA IV SCH (08:16)
[2024-07-13] MEDS: METRONIDAZOLE 500 MG TABLET GT SCH (13:45)
[2024-07-14] VITALS (25 sets, daily range): BP systolic 94–116; BP diastolic 47–83; TEMP 98.5–99.3; O2SAT 84–100
[2024-07-14 05:05] LABS: BASOPHILS % (AUTO) 0.3 % (0.0-2.0); EOSINOPHILS # (AUTO) 0.1 K/uL (0.0-0.7); EOSINOPHILS % (AUTO) 1.8 % (0.0-6.0); HEMATOCRIT 25 % (39-51); HEMOGLOBIN 8.3 g/dL (13.5-17.5); LYMPHOCYTES # (AUTO) 0.4 K/uL (0.8-4.8); LYMPHOCYTES % (AUTO) 6.8 % (20.0-44.0); MEAN CORPUSCULAR HEMOGLOBIN 29 PG (26.0-33.0); MEAN CORPUSCULAR HGB CONC 33 g/dl (31.0-36.0); MEAN CORPUSCULAR VOLUME 86 fL (80-96); MONOCYTES # (AUTO) 0.7 K/uL (0.1-1.30); MONOCYTES % (AUTO) 10.7 % (2.0-12.0); NEUTROPHILS # (AUTO) 5.3 K/uL (1.8-8.9); NEUTROPHILS % (AUTO) 80.4 % (43.0-81.0); PLATELET COUNT (AUTO) 362 K/uL (150-450); RED BLOOD CELL COUNT(AUTO) 2.92 MIL/uL (4.5-6.0); RED CELL DISTRIBUTION WIDTH 16.3 % (11.5-15.0); WHITE BLOOD COUNT (AUTO) 6.6 K/uL (4.3-11.0)
[2024-07-14 05:20] LABS: CALCIUM, SERUM 8.4 mg/dL (8.5-10.1); CREATININE 0.7 mg/dL (0.6-1.3); PHOSPHORUS 3.4 mg/dL (2.5-4.9); POTASSIUM 4.1 mmol/L (3.5-5.1)
[2024-07-15] VITALS (26 sets, daily range): BP systolic 93–143; BP diastolic 63–91; TEMP 98.5–98.8; O2SAT 90–100
[2024-07-15 04:49] LABS: BASOPHILS % (AUTO) 0.3 % (0.0-2.0); EOSINOPHILS # (AUTO) 0.2 K/uL (0.0-0.7); EOSINOPHILS % (AUTO) 2.8 % (0.0-6.0); HEMATOCRIT 26 % (39-51); HEMOGLOBIN 8.7 g/dL (13.5-17.5); LYMPHOCYTES # (AUTO) 0.6 K/uL (0.8-4.8); LYMPHOCYTES % (AUTO) 8.6 % (20.0-44.0); MEAN CORPUSCULAR HEMOGLOBIN 29 PG (26.0-33.0); MEAN CORPUSCULAR HGB CONC 34 g/dl (31.0-36.0); MEAN CORPUSCULAR VOLUME 85 fL (80-96); MONOCYTES # (AUTO) 0.8 K/uL (0.1-1.30); MONOCYTES % (AUTO) 11.4 % (2.0-12.0); NEUTROPHILS # (AUTO) 5.7 K/uL (1.8-8.9); NEUTROPHILS % (AUTO) 76.9 % (43.0-81.0); PLATELET COUNT (AUTO) 361 K/uL (150-450); RED BLOOD CELL COUNT(AUTO) 3.03 MIL/uL (4.5-6.0); RED CELL DISTRIBUTION WIDTH 16.6 % (11.5-15.0); WHITE BLOOD COUNT (AUTO) 7.4 K/uL (4.3-11.0)
[2024-07-15 05:22] LABS: CALCIUM, SERUM 8.3 mg/dL (8.5-10.1); CREATININE 0.7 mg/dL (0.6-1.3); MAGNESIUM 1.9 mg/dL (1.8-2.4); PHOSPHORUS 4.2 mg/dL (2.5-4.9); POTASSIUM 4.4 mmol/L (3.5-5.1)
[2024-07-16] VITALS (24 sets, daily range): BP systolic 93–126; BP diastolic 63–82; TEMP 98.6–99; O2SAT 98–100
[2024-07-16 04:41] LABS: BASOPHILS % (AUTO) 0.2 % (0.0-2.0); EOSINOPHILS # (AUTO) 0.2 K/uL (0.0-0.7); EOSINOPHILS % (AUTO) 3.1 % (0.0-6.0); HEMATOCRIT 27 % (39-51); HEMOGLOBIN 9.1 g/dL (13.5-17.5); LYMPHOCYTES # (AUTO) 0.8 K/uL (0.8-4.8); LYMPHOCYTES % (AUTO) 11.8 % (20.0-44.0); MEAN CORPUSCULAR HEMOGLOBIN 29 PG (26.0-33.0); MEAN CORPUSCULAR HGB CONC 34 g/dl (31.0-36.0); MEAN CORPUSCULAR VOLUME 85 fL (80-96); MONOCYTES # (AUTO) 0.8 K/uL (0.1-1.30); MONOCYTES % (AUTO) 12.4 % (2.0-12.0); NEUTROPHILS # (AUTO) 4.7 K/uL (1.8-8.9); NEUTROPHILS % (AUTO) 72.5 % (43.0-81.0); PLATELET COUNT (AUTO) 370 K/uL (150-450); RED CELL DISTRIBUTION WIDTH 16.2 % (11.5-15.0); WHITE BLOOD COUNT (AUTO) 6.5 K/uL (4.3-11.0)
[2024-07-16 04:51] LABS: CALCIUM, SERUM 8.8 mg/dL (8.5-10.1); CREATININE 0.7 mg/dL (0.6-1.3); MAGNESIUM 1.9 mg/dL (1.8-2.4); POTASSIUM 4.4 mmol/L (3.5-5.1)
[2024-07-16 05:40] LABS: EOSINOPHILS % (MANUAL) 3 % (0-4); LYMPHOCYTES % (MANUAL) 17 % (16-48); MONOCYTES % (MANUAL) 8 % (0-11.0); NEUTROPHILS % (MANUAL) 72 (42-76); PLATELET ESTIMATE ADEQUATE
[2024-07-16] MEDS ORDERED: IV NS 0.9% 250 ML IV PRN (16:00)
[2024-07-17] VITALS (25 sets, daily range): BP systolic 90–116; BP diastolic 62–78; TEMP 98.6–98.9; O2SAT 98–100
[2024-07-17 04:48] LABS: BASOPHILS % (AUTO) 0.3 % (0.0-2.0); EOSINOPHILS # (AUTO) 0.2 K/uL (0.0-0.7); EOSINOPHILS % (AUTO) 2.5 % (0.0-6.0); HEMATOCRIT 28 % (39-51); HEMOGLOBIN 9.4 g/dL (13.5-17.5); LYMPHOCYTES # (AUTO) 0.7 K/uL (0.8-4.8); MEAN CORPUSCULAR HEMOGLOBIN 28 PG (26.0-33.0); MEAN CORPUSCULAR HGB CONC 33 g/dl (31.0-36.0); MEAN CORPUSCULAR VOLUME 84 fL (80-96); MONOCYTES # (AUTO) 0.7 K/uL (0.1-1.30); MONOCYTES % (AUTO) 11.1 % (2.0-12.0); NEUTROPHILS # (AUTO) 4.5 K/uL (1.8-8.9); NEUTROPHILS % (AUTO) 74.1 % (43.0-81.0); PLATELET COUNT (AUTO) 378 K/uL (150-450); RED BLOOD CELL COUNT(AUTO) 3.34 MIL/uL (4.5-6.0); RED CELL DISTRIBUTION WIDTH 16.2 % (11.5-15.0); WHITE BLOOD COUNT (AUTO) 6.1 K/uL (4.3-11.0)
[2024-07-17 04:57] LABS: CALCIUM, SERUM 8.6 mg/dL (8.5-10.1); CREATININE 0.7 mg/dL (0.6-1.3); MAGNESIUM 1.9 mg/dL (1.8-2.4); PHOSPHORUS 4.2 mg/dL (2.5-4.9); POTASSIUM 4.6 mmol/L (3.5-5.1)
[2024-07-18] VITALS (28 sets, daily range): BP systolic 86–120; BP diastolic 54–83; TEMP 98.5–100.8; O2SAT 97–100
[2024-07-18 05:21] LABS: BASOPHILS % (AUTO) 0.2 % (0.0-2.0); EOSINOPHILS # (AUTO) 0.1 K/uL (0.0-0.7); HEMATOCRIT 27 % (39-51); HEMOGLOBIN 9.2 g/dL (13.5-17.5); LYMPHOCYTES # (AUTO) 0.7 K/uL (0.8-4.8); LYMPHOCYTES % (AUTO) 8.6 % (20.0-44.0); MEAN CORPUSCULAR HEMOGLOBIN 28 PG (26.0-33.0); MEAN CORPUSCULAR HGB CONC 34 g/dl (31.0-36.0); MEAN CORPUSCULAR VOLUME 85 fL (80-96); MONOCYTES # (AUTO) 0.8 K/uL (0.1-1.30); MONOCYTES % (AUTO) 9.9 % (2.0-12.0); NEUTROPHILS # (AUTO) 6.7 K/uL (1.8-8.9); NEUTROPHILS % (AUTO) 80.3 % (43.0-81.0); PLATELET COUNT (AUTO) 350 K/uL (150-450); RED BLOOD CELL COUNT(AUTO) 3.24 MIL/uL (4.5-6.0); RED CELL DISTRIBUTION WIDTH 16.2 % (11.5-15.0); WHITE BLOOD COUNT (AUTO) 8.3 K/uL (4.3-11.0)
[2024-07-18 05:31] LABS: CALCIUM, SERUM 8.7 mg/dL (8.5-10.1); CREATININE 0.8 mg/dL (0.6-1.3); MAGNESIUM 1.9 mg/dL (1.8-2.4); PHOSPHORUS 3.9 mg/dL (2.5-4.9); POTASSIUM 4.1 mmol/L (3.5-5.1)
[2024-07-19] VITALS (25 sets, daily range): BP systolic 93–129; BP diastolic 60–89; TEMP 98.4–99.3; O2SAT 97–100
[2024-07-19 04:25] LABS: BASOPHILS % (AUTO) 0.1 % (0.0-2.0); EOSINOPHILS # (AUTO) 0.1 K/uL (0.0-0.7); EOSINOPHILS % (AUTO) 1.6 % (0.0-6.0); HEMATOCRIT 25 % (39-51); HEMOGLOBIN 8.2 g/dL (13.5-17.5); LYMPHOCYTES # (AUTO) 0.5 K/uL (0.8-4.8); LYMPHOCYTES % (AUTO) 7.8 % (20.0-44.0); MEAN CORPUSCULAR HEMOGLOBIN 28 PG (26.0-33.0); MEAN CORPUSCULAR HGB CONC 33 g/dl (31.0-36.0); MEAN CORPUSCULAR VOLUME 85 fL (80-96); MONOCYTES # (AUTO) 0.8 K/uL (0.1-1.30); MONOCYTES % (AUTO) 12.3 % (2.0-12.0); NEUTROPHILS # (AUTO) 4.9 K/uL (1.8-8.9); NEUTROPHILS % (AUTO) 78.2 % (43.0-81.0); PLATELET COUNT (AUTO) 329 K/uL (150-450); RED CELL DISTRIBUTION WIDTH 16.4 % (11.5-15.0); WHITE BLOOD COUNT (AUTO) 6.3 K/uL (4.3-11.0)
[2024-07-19 04:36] LABS: CALCIUM, SERUM 8.3 mg/dL (8.5-10.1); CREATININE 0.8 mg/dL (0.6-1.3); MAGNESIUM 1.9 mg/dL (1.8-2.4); PHOSPHORUS 3.8 mg/dL (2.5-4.9)
[2024-07-20] VITALS (24 sets, daily range): BP systolic 90–117; BP diastolic 58–80; TEMP 98.2–100.9; O2SAT 96–100
[2024-07-20 04:47] LABS: BASOPHILS % (AUTO) 0.1 % (0.0-2.0); EOSINOPHILS # (AUTO) 0.1 K/uL (0.0-0.7); EOSINOPHILS % (AUTO) 1.9 % (0.0-6.0); HEMATOCRIT 25 % (39-51); HEMOGLOBIN 8.2 g/dL (13.5-17.5); LYMPHOCYTES # (AUTO) 0.6 K/uL (0.8-4.8); MEAN CORPUSCULAR HEMOGLOBIN 28 PG (26.0-33.0); MEAN CORPUSCULAR HGB CONC 33 g/dl (31.0-36.0); MEAN CORPUSCULAR VOLUME 85 fL (80-96); MONOCYTES # (AUTO) 0.8 K/uL (0.1-1.30); MONOCYTES % (AUTO) 14.8 % (2.0-12.0); NEUTROPHILS # (AUTO) 3.7 K/uL (1.8-8.9); NEUTROPHILS % (AUTO) 71.2 % (43.0-81.0); PLATELET COUNT (AUTO) 344 K/uL (150-450); RED BLOOD CELL COUNT(AUTO) 2.93 MIL/uL (4.5-6.0); RED CELL DISTRIBUTION WIDTH 16.3 % (11.5-15.0); WHITE BLOOD COUNT (AUTO) 5.2 K/uL (4.3-11.0)
[2024-07-20 05:00] LABS: CREATININE 0.8 mg/dL (0.6-1.3); MAGNESIUM 1.8 mg/dL (1.8-2.4); PHOSPHORUS 3.8 mg/dL (2.5-4.9)
[2024-07-21] VITALS (24 sets, daily range): BP systolic 89–118; BP diastolic 63–79; TEMP 98–99.9; O2SAT 98–100
[2024-07-21 04:59] LABS: BASOPHILS % (AUTO) 0.4 % (0.0-2.0); EOSINOPHILS # (AUTO) 0.1 K/uL (0.0-0.7); EOSINOPHILS % (AUTO) 1.6 % (0.0-6.0); HEMATOCRIT 25 % (39-51); HEMOGLOBIN 8.5 g/dL (13.5-17.5); LYMPHOCYTES # (AUTO) 0.7 K/uL (0.8-4.8); LYMPHOCYTES % (AUTO) 13.4 % (20.0-44.0); MEAN CORPUSCULAR HEMOGLOBIN 29 PG (26.0-33.0); MEAN CORPUSCULAR HGB CONC 34 g/dl (31.0-36.0); MEAN CORPUSCULAR VOLUME 85 fL (80-96); MONOCYTES # (AUTO) 0.8 K/uL (0.1-1.30); MONOCYTES % (AUTO) 15.7 % (2.0-12.0); NEUTROPHILS # (AUTO) 3.5 K/uL (1.8-8.9); NEUTROPHILS % (AUTO) 68.9 % (43.0-81.0); PLATELET COUNT (AUTO) 378 K/uL (150-450); RED BLOOD CELL COUNT(AUTO) 2.96 MIL/uL (4.5-6.0)
[2024-07-21 05:11] LABS: CALCIUM, SERUM 8.4 mg/dL (8.5-10.1); CREATININE 0.8 mg/dL (0.6-1.3); MAGNESIUM 1.9 mg/dL (1.8-2.4); PHOSPHORUS 3.9 mg/dL (2.5-4.9); POTASSIUM 3.9 mmol/L (3.5-5.1)
[2024-07-21 06:12] LABS: ANISOCYTOSIS 1+; LYMPHOCYTES % (MANUAL) 10 % (16-48); MONOCYTES % (MANUAL) 15 % (0-11.0); NEUTROPHILS % (MANUAL) 75 (42-76); PLATELET ESTIMATE INCREASED
[2024-07-22] VITALS (25 sets, daily range): BP systolic 92–122; BP diastolic 60–95; TEMP 98.9–99.6; O2SAT 90–100
[2024-07-22 04:55] LABS: BASOPHILS % (AUTO) 0.5 % (0.0-2.0); EOSINOPHILS # (AUTO) 0.1 K/uL (0.0-0.7); EOSINOPHILS % (AUTO) 2.3 % (0.0-6.0); HEMATOCRIT 24 % (39-51); LYMPHOCYTES # (AUTO) 0.6 K/uL (0.8-4.8); LYMPHOCYTES % (AUTO) 13.2 % (20.0-44.0); MEAN CORPUSCULAR HEMOGLOBIN 28 PG (26.0-33.0); MEAN CORPUSCULAR HGB CONC 33 g/dl (31.0-36.0); MEAN CORPUSCULAR VOLUME 86 fL (80-96); MONOCYTES # (AUTO) 0.7 K/uL (0.1-1.30); MONOCYTES % (AUTO) 16.5 % (2.0-12.0); NEUTROPHILS # (AUTO) 2.9 K/uL (1.8-8.9); NEUTROPHILS % (AUTO) 67.5 % (43.0-81.0); PLATELET COUNT (AUTO) 340 K/uL (150-450); RED BLOOD CELL COUNT(AUTO) 2.85 MIL/uL (4.5-6.0); RED CELL DISTRIBUTION WIDTH 16.3 % (11.5-15.0); WHITE BLOOD COUNT (AUTO) 4.3 K/uL (4.3-11.0)
[2024-07-22 05:21] LABS: CALCIUM, SERUM 8.2 mg/dL (8.5-10.1); CREATININE 0.7 mg/dL (0.6-1.3); POTASSIUM 3.9 mmol/L (3.5-5.1)
[2024-07-22 06:17] LABS: ANISOCYTOSIS 2+; EOSINOPHILS % (MANUAL) 2 % (0-4); LYMPHOCYTES % (MANUAL) 14 % (16-48); MONOCYTES % (MANUAL) 16 % (0-11.0); NEUTROPHILS % (MANUAL) 68 (42-76); PLATELET ESTIMATE ADEQUATE
[2024-07-22] MEDS: BIKTARVY 50-200-25 MG TABLET NF GT SCH (13:34)
[2024-07-23] VITALS (58 sets, daily range): BP systolic 88–112; BP diastolic 63–81; TEMP 98.5–99.6; O2SAT 97–100
[2024-07-24] VITALS: BP 110/68; TEMP 99; O2SAT 99
[2024-07-24 04:00] VITALS: BP 108/63; TEMP 98.8; O2SAT 100
[2024-07-24 08:00] VITALS: BP 93/62; TEMP 98.8; O2SAT 100
[2024-07-24 12:00] VITALS: BP 92/64; TEMP 98.8; O2SAT 100
[2024-07-24 15:39] LABS: BASOPHILS % (AUTO) 0.2 % (0.0-2.0); EOSINOPHILS # (AUTO) 0.1 K/uL (0.0-0.7); EOSINOPHILS % (AUTO) 2.5 % (0.0-6.0); HEMATOCRIT 25 % (39-51); HEMOGLOBIN 8.5 g/dL (13.5-17.5); LYMPHOCYTES # (AUTO) 0.6 K/uL (0.8-4.8); LYMPHOCYTES % (AUTO) 15.8 % (20.0-44.0); MEAN CORPUSCULAR HEMOGLOBIN 29 PG (26.0-33.0); MEAN CORPUSCULAR HGB CONC 33 g/dl (31.0-36.0); MEAN CORPUSCULAR VOLUME 85 fL (80-96); MONOCYTES # (AUTO) 0.5 K/uL (0.1-1.30); MONOCYTES % (AUTO) 14.1 % (2.0-12.0); NEUTROPHILS # (AUTO) 2.5 K/uL (1.8-8.9); NEUTROPHILS % (AUTO) 67.4 % (43.0-81.0); PLATELET COUNT (AUTO) 377 K/uL (150-450); RED BLOOD CELL COUNT(AUTO) 2.98 MIL/uL (4.5-6.0); RED CELL DISTRIBUTION WIDTH 16.3 % (11.5-15.0); WHITE BLOOD COUNT (AUTO) 3.8 K/uL (4.3-11.0)
[2024-07-24 15:56] LABS: CREATININE 0.8 mg/dL (0.6-1.3); MAGNESIUM 2.1 mg/dL (1.8-2.4); PHOSPHORUS 4.2 mg/dL (2.5-4.9); POTASSIUM 3.9 mmol/L (3.5-5.1)
[2024-07-24 16:00] VITALS: BP 91/60; TEMP 99.3; O2SAT 100
[2024-07-24 20:00] VITALS: BP 107/73; TEMP 100; O2SAT 100
[2024-07-25] VITALS (7 sets, daily range): BP systolic 91–106; BP diastolic 63–73; TEMP 98.6–99.7; O2SAT 100
[2024-07-25 07:18] LABS: BASOPHILS % (AUTO) 0.4 % (0.0-2.0); EOSINOPHILS # (AUTO) 0.1 K/uL (0.0-0.7); EOSINOPHILS % (AUTO) 3.2 % (0.0-6.0); HEMATOCRIT 29 % (39-51); HEMOGLOBIN 9.7 g/dL (13.5-17.5); LYMPHOCYTES # (AUTO) 0.8 K/uL (0.8-4.8); LYMPHOCYTES % (AUTO) 20.5 % (20.0-44.0); MEAN CORPUSCULAR HEMOGLOBIN 28 PG (26.0-33.0); MEAN CORPUSCULAR HGB CONC 33 g/dl (31.0-36.0); MEAN CORPUSCULAR VOLUME 85 fL (80-96); MONOCYTES # (AUTO) 0.7 K/uL (0.1-1.30); MONOCYTES % (AUTO) 18.1 % (2.0-12.0); NEUTROPHILS # (AUTO) 2.3 K/uL (1.8-8.9); NEUTROPHILS % (AUTO) 57.8 % (43.0-81.0); PLATELET COUNT (AUTO) 390 K/uL (150-450); RED BLOOD CELL COUNT(AUTO) 3.42 MIL/uL (4.5-6.0); RED CELL DISTRIBUTION WIDTH 16.5 % (11.5-15.0); WHITE BLOOD COUNT (AUTO) 3.9 K/uL (4.3-11.0)
[2024-07-25 07:34] LABS: CALCIUM, SERUM 9.2 mg/dL (8.5-10.1); CREATININE 0.7 mg/dL (0.6-1.3); MAGNESIUM 2.3 mg/dL (1.8-2.4); PHOSPHORUS 3.4 mg/dL (2.5-4.9); POTASSIUM 4.7 mmol/L (3.5-5.1)
[2024-07-25 11:38] LABS: EOSINOPHILS % (MANUAL) 3 % (0-4); LYMPHOCYTES % (MANUAL) 20 % (16-48); MONOCYTES % (MANUAL) 15 % (0-11.0); NEUTROPHILS % (MANUAL) 62 (42-76)
[2024-07-25 11:43] LABS: ANISOCYTOSIS 1+; PLATELET ESTIMATE ADEQUATE
[2024-07-25] MEDS ORDERED: IV NS 0.9% 250 ML IV ONE (19:27)
[2024-07-25] MEDS ORDERED: IOHEXOL-300 100 ML VIAL IV ONE (19:27)
[2024-07-25] MEDS ORDERED: DIATR MEGLU/DIATRIZOATE SODIUM 30 ML BOTTLE (GASTROGRAPHIN) ONE (19:30)
[2024-07-26] VITALS: BP 101/75; TEMP 98.5; O2SAT 100
[2024-07-26 04:00] VITALS: BP 99/69; TEMP 98.6; O2SAT 100
[2024-07-26 07:00] LABS: BASOPHILS % (AUTO) 0.3 % (0.0-2.0); EOSINOPHILS # (AUTO) 0.2 K/uL (0.0-0.7); EOSINOPHILS % (AUTO) 4.5 % (0.0-6.0); HEMATOCRIT 24 % (39-51); HEMOGLOBIN 8.2 g/dL (13.5-17.5); LYMPHOCYTES # (AUTO) 1.2 K/uL (0.8-4.8); MEAN CORPUSCULAR HEMOGLOBIN 30 PG (26.0-33.0); MEAN CORPUSCULAR HGB CONC 34 g/dl (31.0-36.0); MEAN CORPUSCULAR VOLUME 87 fL (80-96); MONOCYTES # (AUTO) 1.2 K/uL (0.1-1.30); MONOCYTES % (AUTO) 25.1 % (2.0-12.0); NEUTROPHILS # (AUTO) 2.2 K/uL (1.8-8.9); NEUTROPHILS % (AUTO) 45.1 % (43.0-81.0); PLATELET COUNT (AUTO) 396 K/uL (150-450); RED BLOOD CELL COUNT(AUTO) 2.77 MIL/uL (4.5-6.0); RED CELL DISTRIBUTION WIDTH 16.5 % (11.5-15.0)
[2024-07-26 07:20] LABS: CALCIUM, SERUM 8.7 mg/dL (8.5-10.1); CREATININE 0.7 mg/dL (0.6-1.3); PHOSPHORUS 3.5 mg/dL (2.5-4.9); POTASSIUM 3.9 mmol/L (3.5-5.1)
[2024-07-26 08:00] VITALS: BP 106/76; TEMP 98.2; O2SAT 100
[2024-07-26 12:00] VITALS: BP 107/79; TEMP 98.9; O2SAT 100
[2024-07-26 14:39] LABS: ANISOCYTOSIS 1+; EOSINOPHILS % (MANUAL) 3 % (0-4); LYMPHOCYTES % (MANUAL) 21 % (16-48); MONOCYTES % (MANUAL) 25 % (0-11.0); NEUTROPHILS % (MANUAL) 51 (42-76); PLATELET ESTIMATE ADEQUATE
[2024-07-26 16:00] VITALS: BP 105/76; TEMP 99; O2SAT 100
[2024-07-26 20:00] VITALS: BP 115/95; TEMP 98.3; O2SAT 100
[2024-07-27] VITALS: BP 105/81; TEMP 98.8; O2SAT 100
[2024-07-27 04:00] VITALS: BP 115/81; TEMP 98.8; O2SAT 100
[2024-07-27 08:00] VITALS: BP 104/75; TEMP 98.6; O2SAT 100
[2024-07-27 08:13] LABS: BASOPHILS % (AUTO) 0.3 % (0.0-2.0); EOSINOPHILS # (AUTO) 0.2 K/uL (0.0-0.7); EOSINOPHILS % (AUTO) 6.1 % (0.0-6.0); HEMATOCRIT 27 % (39-51); HEMOGLOBIN 8.9 g/dL (13.5-17.5); LYMPHOCYTES # (AUTO) 0.6 K/uL (0.8-4.8); LYMPHOCYTES % (AUTO) 17.9 % (20.0-44.0); MEAN CORPUSCULAR HEMOGLOBIN 29 PG (26.0-33.0); MEAN CORPUSCULAR HGB CONC 34 g/dl (31.0-36.0); MEAN CORPUSCULAR VOLUME 85 fL (80-96); MONOCYTES # (AUTO) 0.5 K/uL (0.1-1.30); MONOCYTES % (AUTO) 15.9 % (2.0-12.0); NEUTROPHILS % (AUTO) 59.8 % (43.0-81.0); PLATELET COUNT (AUTO) 415 K/uL (150-450); RED CELL DISTRIBUTION WIDTH 16.3 % (11.5-15.0); WHITE BLOOD COUNT (AUTO) 3.3 K/uL (4.3-11.0)
[2024-07-27 08:27] LABS: CREATININE 0.7 mg/dL (0.6-1.3); MAGNESIUM 2.1 mg/dL (1.8-2.4); PHOSPHORUS 3.9 mg/dL (2.5-4.9); POTASSIUM 3.9 mmol/L (3.5-5.1)
[2024-07-27 12:00] VITALS: BP 108/65; TEMP 98.6; O2SAT 100
[2024-07-27 16:00] VITALS: BP 101/78; TEMP 99.1; O2SAT 100
[2024-07-27 20:00] VITALS: BP 109/82; TEMP 99.9; O2SAT 100
[2024-07-27] MEDS: ACETAMINOPHEN 650 MG/20.3 ML UDC GT PRN (22:12)
[2024-07-28] VITALS (7 sets, daily range): BP systolic 94–111; BP diastolic 62–79; TEMP 98.1–100.8; O2SAT 99–100
[2024-07-28 11:27] LABS: BASOPHILS % (AUTO) 0.6 % (0.0-2.0); EOSINOPHILS # (AUTO) 0.2 K/uL (0.0-0.7); EOSINOPHILS % (AUTO) 2.5 % (0.0-6.0); HEMATOCRIT 26 % (39-51); HEMOGLOBIN 8.9 g/dL (13.5-17.5); LYMPHOCYTES # (AUTO) 0.8 K/uL (0.8-4.8); LYMPHOCYTES % (AUTO) 10.9 % (20.0-44.0); MEAN CORPUSCULAR HEMOGLOBIN 29 PG (26.0-33.0); MEAN CORPUSCULAR HGB CONC 34 g/dl (31.0-36.0); MEAN CORPUSCULAR VOLUME 85 fL (80-96); MONOCYTES # (AUTO) 0.9 K/uL (0.1-1.30); MONOCYTES % (AUTO) 11.8 % (2.0-12.0); NEUTROPHILS # (AUTO) 5.7 K/uL (1.8-8.9); NEUTROPHILS % (AUTO) 74.2 % (43.0-81.0); PLATELET COUNT (AUTO) 417 K/uL (150-450); RED CELL DISTRIBUTION WIDTH 16.2 % (11.5-15.0); WHITE BLOOD COUNT (AUTO) 7.7 K/uL (4.3-11.0)
[2024-07-29] VITALS (7 sets, daily range): BP systolic 95–106; BP diastolic 66–75; TEMP 97.8–98.8; O2SAT 100
[2024-07-29 06:22] LABS: BASOPHILS % (AUTO) 0.4 % (0.0-2.0); EOSINOPHILS # (AUTO) 0.3 K/uL (0.0-0.7); EOSINOPHILS % (AUTO) 5.8 % (0.0-6.0); HEMATOCRIT 25 % (39-51); HEMOGLOBIN 8.6 g/dL (13.5-17.5); LYMPHOCYTES # (AUTO) 0.8 K/uL (0.8-4.8); LYMPHOCYTES % (AUTO) 15.6 % (20.0-44.0); MEAN CORPUSCULAR HEMOGLOBIN 30 PG (26.0-33.0); MEAN CORPUSCULAR HGB CONC 35 g/dl (31.0-36.0); MEAN CORPUSCULAR VOLUME 86 fL (80-96); MONOCYTES # (AUTO) 0.9 K/uL (0.1-1.30); MONOCYTES % (AUTO) 16.5 % (2.0-12.0); NEUTROPHILS # (AUTO) 3.2 K/uL (1.8-8.9); NEUTROPHILS % (AUTO) 61.7 % (43.0-81.0); PLATELET COUNT (AUTO) 371 K/uL (150-450); RED BLOOD CELL COUNT(AUTO) 2.91 MIL/uL (4.5-6.0); RED CELL DISTRIBUTION WIDTH 16.7 % (11.5-15.0); WHITE BLOOD COUNT (AUTO) 5.2 K/uL (4.3-11.0)
[2024-07-29 06:51] LABS: CALCIUM, SERUM 9.7 mg/dL (8.5-10.1); CREATININE 0.8 mg/dL (0.6-1.3); PHOSPHORUS 3.9 mg/dL (2.5-4.9)
[2024-07-30] VITALS: BP 107/76; TEMP 98.5; O2SAT 100
[2024-07-30 04:00] VITALS: BP 105/72; TEMP 98.1; O2SAT 100
[2024-07-30 08:00] VITALS: BP 108/82; TEMP 98.4; O2SAT 100
[2024-07-30 12:00] VITALS: BP 115/74; TEMP 98.4; O2SAT 100
[2024-07-30 16:00] VITALS: BP 110/83; TEMP 99.4; O2SAT 100
[2024-07-30 20:00] VITALS: BP 101/67; TEMP 98.3; O2SAT 100
[2024-07-31] VITALS (7 sets, daily range): BP systolic 100–126; BP diastolic 75–92; TEMP 97.6–99.1; O2SAT 100
[2024-08-01] VITALS (7 sets, daily range): BP systolic 108–116; BP diastolic 71–85; TEMP 98–99.4; O2SAT 100
[2024-08-02] VITALS: BP 109/78; TEMP 98.8; O2SAT 100
[2024-08-02 04:00] VITALS: BP 114/84; TEMP 98.8; O2SAT 100
[2024-08-02 08:00] VITALS: BP 108/76; TEMP 98.6; O2SAT 100
[2024-08-02 08:55] LABS: BASOPHILS % (AUTO) 0.4 % (0.0-2.0); EOSINOPHILS # (AUTO) 0.4 K/uL (0.0-0.7); EOSINOPHILS % (AUTO) 8.3 % (0.0-6.0); HEMATOCRIT 28 % (39-51); HEMOGLOBIN 9.1 g/dL (13.5-17.5); LYMPHOCYTES # (AUTO) 0.7 K/uL (0.8-4.8); LYMPHOCYTES % (AUTO) 13.5 % (20.0-44.0); MEAN CORPUSCULAR HEMOGLOBIN 29 PG (26.0-33.0); MEAN CORPUSCULAR HGB CONC 33 g/dl (31.0-36.0); MEAN CORPUSCULAR VOLUME 88 fL (80-96); MONOCYTES # (AUTO) 0.8 K/uL (0.1-1.30); MONOCYTES % (AUTO) 15.3 % (2.0-12.0); NEUTROPHILS # (AUTO) 3.2 K/uL (1.8-8.9); NEUTROPHILS % (AUTO) 62.5 % (43.0-81.0); PLATELET COUNT (AUTO) 333 K/uL (150-450); RED BLOOD CELL COUNT(AUTO) 3.16 MIL/uL (4.5-6.0); RED CELL DISTRIBUTION WIDTH 17.3 % (11.5-15.0); WHITE BLOOD COUNT (AUTO) 5.1 K/uL (4.3-11.0)
[2024-08-02 09:04] LABS: CALCIUM, SERUM 10.2 mg/dL (8.5-10.1); CREATININE 0.7 mg/dL (0.6-1.3); MAGNESIUM 2.1 mg/dL (1.8-2.4); POTASSIUM 3.9 mmol/L (3.5-5.1)
[2024-08-02 12:00] VITALS: BP 108/83; TEMP 98.7; O2SAT 100
[2024-08-02 15:43] LABS: TOTAL VOLUME,BODY FLUID 3.5 mL; WBC, BODY FLUID 200163 /cu. mm. (0-200)
[2024-08-02 15:44] LABS: APPEARANCE,SPUN,BODY FLUID CLOUDY (CLEAR); MACROPHAGES, BODY FLUID 0; MONOCYTES,BODY FLUID 0 %; POLYNUCLEAR, BODY FLUID 100 % (0-25)
[2024-08-02 16:00] VITALS: BP 118/77; TEMP 98.3; O2SAT 100
[2024-08-02 20:00] VITALS: BP 105/82; O2SAT 100
[2024-08-03] VITALS: BP 99/72; TEMP 99.7; O2SAT 100
[2024-08-03 04:00] VITALS: BP 127/72; TEMP 98.8; O2SAT 100
[2024-08-03 08:00] VITALS: BP 106/78; TEMP 98.4; O2SAT 95
[2024-08-03] MEDS: POLYETHYLENE GLYCOL 3350 17 GM POWD.PACK GT SCH (08:23)
[2024-08-03] MEDS: DAPTOMYCIN 500 MG in IV NS 0.9% 50 ML IV SCH (10:56)
[2024-08-03 12:00] VITALS: BP 105/72; TEMP 99.1; O2SAT 100
[2024-08-03 16:00] VITALS: BP 100/70; TEMP 98.8; O2SAT 99
[2024-08-03 16:54] VITALS: BP 100/70
== END 2024-08-03 22:14 | DRG 870 ==
LOC: ER 05:20 → TELE-TD 12:47 → ICU 22:23 → TELE1 07-23 17:52 → TELE-TD 07-23 18:01 → TELE1 07-24 14:38
PROVIDERS: ADMIT Nurse Practitioner Acute Care; ATTEND Internal Medicine
PROC: 5A1955Z Respiratory Ventilation, Greater than 96 Consecutive Hours (ICD-10-PCS; principal; 2024-06-25)
PROC: 0W9B3ZZ Drainage of Left Pleural Cavity, Percutaneous Approach (ICD-10-PCS; 2024-06-28)
PROC: 06HM33Z Insertion of Infusion Device into Right Femoral Vein, Percutaneous Approach (ICD-10-PCS; 2024-06-29)
PROC: B54BZZA Ultrasonography of Right Lower Extremity Veins, Guidance (ICD-10-PCS; 2024-06-29)
PROC: 06HY33Z Insertion of Infusion Device into Lower Vein, Percutaneous Approach (ICD-10-PCS; 2024-06-29)
PROC: 0W993ZZ Drainage of Right Pleural Cavity, Percutaneous Approach (ICD-10-PCS; 2024-06-29)
PROC: 0W9B30Z Drainage of Left Pleural Cavity with Drainage Device, Percutaneous Approach (ICD-10-PCS; 2024-07-03)
PROC: 30233N1 Transfusion of Nonautologous Red Blood Cells into Peripheral Vein, Percutaneous Approach (ICD-10-PCS; 2024-07-05)
PROC: 02HV33Z Insertion of Infusion Device into Superior Vena Cava, Percutaneous Approach (ICD-10-PCS; 2024-07-05)
PROC: B548ZZA Ultrasonography of Superior Vena Cava, Guidance (ICD-10-PCS; 2024-07-05)
PROC: 0W9930Z Drainage of Right Pleural Cavity with Drainage Device, Percutaneous Approach (ICD-10-PCS; 2024-07-07)
PROC: 0DH63UZ Insertion of Feeding Device into Stomach, Percutaneous Approach (ICD-10-PCS; 2024-07-22)
DX: A41.9 Sepsis, unspecified organism (principal); J96.21 Acute and chronic respiratory failure with hypoxia; R65.21 Severe sepsis with septic shock; K65.9 Peritonitis, unspecified; G93.41 Metabolic encephalopathy; E43 Unspecified severe protein-calorie malnutrition; J15.9 Unspecified bacterial pneumonia; N17.0 Acute kidney failure with tubular necrosis; J98.51 Mediastinitis; J86.9 Pyothorax without fistula; D68.59 Other primary thrombophilia; N39.0 Urinary tract infection, site not specified; E87.1 Hypo-osmolality and hyponatremia; E87.20 Acidosis, unspecified; Z99.11 Dependence on respirator [ventilator] status; K94.23 Gastrostomy malfunction; J90 Pleural effusion, not elsewhere classified; K92.2 Gastrointestinal hemorrhage, unspecified; K29.70 Gastritis, unspecified, without bleeding; Z20.822 Contact with and (suspected) exposure to COVID-19; E78.5 Hyperlipidemia, unspecified; D64.9 Anemia, unspecified; E83.42 Hypomagnesemia; E83.52 Hypercalcemia; E86.1 Hypovolemia; E87.5 Hyperkalemia; G40.909 Epilepsy, unspecified, not intractable, without status epilepticus; R13.10 Dysphagia, unspecified; Z93.0 Tracheostomy status; Z87.820 Personal history of traumatic brain injury; Z74.01 Bed confinement status; R74.01 Elevation of levels of liver transaminase levels; V89.2XXS Person injured in unspecified motor-vehicle accident, traffic, sequela; J98.2 Interstitial emphysema; L90.5 Scar conditions and fibrosis of skin; K21.9 Gastro-esophageal reflux disease without esophagitis; I10 Essential (primary) hypertension; E87.70 Fluid overload, unspecified; Z68.30 Body mass index [BMI] 30.0-30.9, adult; S31.829A Unspecified open wound of left buttock, initial encounter; X58.XXXA Exposure to other specified factors, initial encounter; Y93.9 Activity, unspecified; Y92.129 Unspecified place in nursing home as the place of occurrence of the external cause; L53.8 Other specified erythematous conditions
CPT/HCPCS: 31720; 36415; 36569; 36600; 43246; 71045-TC; 71250-TC; 71260-TC; 74018; 75989; 75989-TC; 80048-TC; 80053-TC; 80061-TC; 80076-TC; 80202-TC; 81001; 82040-TC; 82607-TC; 82728-TC; 82803-TC; 82962-TC; 83540-TC; 83605-TC; 83690-TC; 83735-TC; 84100-TC; 84132-TC; 84134-TC; 84155-TC; 84443-TC; 84478-TC; 85025-TC; 85027-TC; 85730-TC; 86360; 86480; 86592; 86593; 86704; 86706; 86803; 86850-TC; 87040-TC; 87081-TC; 87086-TC; 87102-TC; 87281; 87340; 87536; 87806; 87899; 88108-TC; 88305-TC; 88312-TC; 88341; 88342; 89051-TC; 94002-TC; 94003-TC; 94640-TC; 94760-TC; 94762-TC; 94799-TC; 99082-TC; A4216; A4217; A4223; A4349; A4623; A6253; A6403; A7526; A9563; G0378; J0282; J0330; J0692; J0696; J0878; J1160; J1450; J1815; J1885; J1953; J2060; J2185; J2250; J2354; J2470; J2543; J2704; J2765; J2916; J2997; J3010; J3370; J3371; J3475; J3480; J3490; J7030; J7040; J7050; J7060; J7120; P9016; P9047; Q9963; Q9967